=== PATIENT | female | born 1980 | race Caucasian/White ===

== ENCOUNTER 2016-12-03 17:36 | Emergency (ER) ==
[2016-12-03 17:42] VITALS: TEMP 98.7; BMI 18.6
[2016-12-03 17:52] VITALS: BP 138/85
--- NOTE | 2016-12-03 18:10 | ED.PDOC ---
General ED Provider: Dr. COURTNEY GAONA JR Chief Complaint: Dizziness Stated Complaint: dizziness, with lightness and passing out, with confusion, was at work passed out for 45 minutes[End]dizziness with syncopal episode[End] has been passing out with dizziness for the last 4 days, has not eaten today, symptoms of syncope last for 45 minutes[End]4 DAYS 98.7 96 16 99% 158/89 PATIENT ACTUALLY DESCRIBES FALLING DOWN STAIRS STRIKING HEAD ON MULTIPLE STEPS THEN TWO DAYS LATER FALLING ON SLICK FLOOR IN KITCHEN STRIKING BACKOF HEAD- NECK NONTENDER, BACK OF SCALP SLIGHTLY TENDER, COMPLAINS OF SEVERE STRESS IS BITING NAILS AND CHEWING CUTICLES STATES WAS TAKING ANTIBIOTICS BUT STOPEED DUE TOLIGHTHEADEDNESS(TOOK OF 14: 9 LEFT) Time Seen by Physician: 18:09 Mode of Arrival: Walk-In Information Source: Patient Exam Limitations: No limitations Primary Care Provider: PEPE MA Nursing and Triage Documentation Reviewed and Agree: No Review of Systems - Review Of Systems Constitutional: Reports: Weakness Eyes: Reports: No symptoms Ears, Nose, Mouth, Throat: Reports: No symptoms Respiratory: Reports: No symptoms Cardiac: Reports: No symptoms GI: Reports: No symptoms : Reports: No symptoms Musculoskeletal: Reports: Back pain Skin: Reports: Bruising (NOT SEEN) Neurological: Reports: Anxiety Endocrine: Reports: No symptoms Hematologic/Lymphatic: Reports: No symptoms All Other Systems: Other Past Medical History - Past Medical History Endocrine: Reports: None Cardiovascular: Reports: None Respiratory: Reports: None Hematological: Reports: None Gastrointestinal: Reports: None, Pancreatitis Genitourinary: Reports: None Neuro/Psych: Reports: None Musculoskeletal: Reports: None, Back Pain (CHRONIC" DEFECT ON NORCO") Cancer: Reports: None Last Menstrual Period: na - Surgical History General Surgical History: Reports: Tonsillectomy, Other (COLONOSCOPY, BREAST AUGMENTATION, DIAGNOSTIC LAPAROTOMY) - Family History Family History: Reports: Unknown - Social History Smoking Status: Current some day smoker Hx Substance Use: No Alcohol Screening: None - Immunizations Tetanus Shot up to Date: Yes Physical Exam - Physical Exam Appearance: Well-appearing, Thin Ill-appearing: Mild Pain Distress: Mild Eyes: ALICE, EOMI, Conjunctiva clear ENT: Ears normal, Nose normal, Oropharynx normal Neck: Supple Respiratory: Airway patent, Breath sounds equal, Respirations nonlabored, Rhonchi Cardiovascular: RRR, Pulses normal, No rub, No murmur GI/: Soft, No masses, Bowel sounds normal, No Organomegaly, Tender ( EPIGASTRIC AND LOW ABDOMEN NOFOCAL) Musculoskeletal: Normal strength, ROM intact, No edema, No calf tenderness Skin: Warm, Dry, Normal color Neurological: Sensation intact, Motor intact, Reflexes intact, Cranial nerves intact, Alert, Oriented Psychiatric: Anxious Interpretation - Radiology Interpretation Radiology Interpretation By: Radiologist Radiology Results: Negative Exam Interpreted: CT Scan (HEAD) - EKG Interpretation Time of EKG #1: 19:09 Rate: Normal Rhythm: Sinus Ectopy: None [place]: NL ST Segment: Normal Critical Care Note - Critical Care Note Total Time (mins): 0 Course - Course Hematology/Chemistry: 12/03/16 18:36 12/03/16 18:36 Orders, Labs, Meds: Lab Review 12/03/16 12/03/16 18:36 18:40 WBC 8.78 RBC 3.90 L Hgb 11.9 L Hct 35.6 L MCV 91.3 MCH 30.5 MCHC 33.4 RDW Coeff of Aditi 13.9 Plt Count 239 Immature Gran % (Auto) 0.3 Neut % (Auto) 61.7 Lymph % (Auto) 32.9 [place] % (Auto) 4.2 Eos % (Auto) 0.7 Baso % (Auto) 0.2 Immature Gran # (Auto) 0.0 Neut # 5.4 Lymph # 2.9 [place] # 0.4 Eos # 0.1 Baso # 0.0 Sodium 138 Potassium 3.5 Chloride 103 Carbon Dioxide 25 Anion Gap 13.5 BUN 5 L Creatinine 0.75 Estimated GFR (MDRD) 88.00 BUN/Creatinine Ratio 6.66 Glucose 109 Calcium 8.9 Total Bilirubin 0.49 AST 16 ALT 15 Alkaline Phosphatase 73 Total Protein 6.8 Albumin 3.6 Globulin 3.2 Albumin/Globulin Ratio 1.13 Urine Color Yellow Urine Clarity Clear Urine pH 6.5 Ur Specific [place] 1.015 Urine Protein Negative Urine Glucose (UA) Negative Urine Ketones Negative Urine Blood Negative Urine Nitrite Negative Urine Bilirubin Negative Urine Urobilinogen 0.2 Ur Leukocyte Esterase Negative Orders Category Date Time Status EKG-(ED ONLY) Stat CARDIO 12/03/16 18:01 Ordered CBC W/ AUTO DIFF Stat LAB 12/03/16 18:36 Completed COMPREHENSIVE METABOLIC PANEL Stat LAB 12/03/16 18:36 Completed UA [URINALYSIS C & S IF INDICATED] Stat LAB 12/03/16 18:[address] HEAD W/O CONTRAST Stat RADS 12/03/16 18:01 Completed Vital Signs: Temp Pulse Resp BP Pulse Ox 12/03/16 17:52 106 H 138/85 12/03/16 17:51 96 H 158/89 H 12/03/16 17:37 98.7 F 96 H 16 158/89 H 99 Departure - Departure Time of Disposition: 19:32 Disposition: HOME SELF-CARE Discharge Problem: Dizziness Head injury due to trauma Qualifiers: Encounter type: initial encounter Qualifier Code: (S09.90XA) Unspecified injury of head, initial encounter Instructions: Concussion (ED), Head Injury (ED), Dizziness (ED) Condition: Good Pt referred to PMD for follow-up: Yes Additional Instructions: CAUTION WHEN WALKING OR TAKING STEPS NO EVIDENCE SERIOUS INJURY RETURN IF HEADACHE WORSENING TYLENOL FOR PAIN OR HEADACHE AVOID NSAIDS FOR TWO WEEKS AFTER HEAD INJURY RECHECK PMD 2-3 DAYS Allergies/Adverse Reactions: Allergies No Known Allergies Allergy (Verified 12/03/16 17:52) Home Medications: Ambulatory Orders Clonazepam [Klonopin] 1 mg PO BEDTIME 09/10/14 Quetiapine Fumarate [Seroquel] 100 mg PO BEDTIME 09/10/14 Tizanidine HCl [Zanaflex] 4 mg PO BID 09/10/14 l-Norgest/E.estradion-E.estrad [[place] 0.15-0.03-0.01 mg Tab] 1 each PO DAILY
--- NOTE | 2016-12-03 18:36 | CT ---
EXAM: CT brain without contrast HISTORY: Recurrent syncope. TECHNIQUE: Multi-slice sequential. Coronal and sagital reformations were performed. COMPARISON: None FINDINGS: There is no acute intracranial hemorrhage, extraxial fluid collection, mass affect, or midlineshift. The ventricles are normal in size.The winn-white matter interface is maintained.The basal cisterns a re patent.The visualized paranasal sinuses are clear. Mastoid air cells are well aerated.The calvari um is unremarkable. IMPRESSION: No acute intracranial findings.
[2016-12-03 18:42] LABS: BASOPHILS % (AUTO) 0.2 % (0.0-3.0); EOSINOPHILS # (AUTO) 0.1 K/ul (0.0-0.7); EOSINOPHILS % (AUTO) 0.7 % (0.0-7.0); HEMATOCRIT 35.6 % (37.0-47.0); HEMOGLOBIN 11.9 g/dl (12.0-16.0); IMMATURE GRANULOCYTE % (AUTO) 0.3 % (0.0-5.0); LYMPHOCYTES # (AUTO) 2.9 K/uL (0.60-3.4); LYMPHOCYTES % (AUTO) 32.9 (10.0-50.0); MEAN CORPUSCULAR HEMOGLOBIN 30.5 pg (27.0-31.0); MEAN CORPUSCULAR HGB CONC 33.4 (31.8-35.4); MEAN CORPUSCULAR VOLUME 91.3 fl (81.0-99.0); MONOCYTES # (AUTO) 0.4 K/uL (0.4-2.0); MONOCYTES % (AUTO) 4.2 (0-10); NEUTROPHILS # (AUTO) 5.4 K/ul (2.0-6.9); NEUTROPHILS % (AUTO) 61.7; PLATELET COUNT 239 10^3/uL (140-440); WHITE BLOOD COUNT 8.78 K/ul (4.6-10.2)
[2016-12-03 18:48] LABS: BILIRUBIN,URINE Negative (NEGATIVE); KETONES,URINE Negative (NEGATIVE); LEUKOCYTE ESTERASE ,URINE Negative (NEGATIVE); NITRITE,URINE Negative (NEGATIVE); PH,URINE 6.5 (5-9); PROTEIN,URINE Negative (NEGATIVE); URINE, BLOOD Negative (NEGATIVE)
[2016-12-03 18:49] LABS: ADD URINE MICROSCOPIC NO
[2016-12-03 19:00] LABS: ALBUMIN 3.6 g/dL (3.4-5.0); ALBUMIN/GLOBULIN RATIO 1.13; ANION GAP 13.5; BILIRUBIN,TOTAL 0.49 mg/dL (0.00-1.20); BUN/CREATININE RATIO 6.66; CALCIUM 8.9 mg/dL (8.2-10.2); CREATININE 0.75 mg/dL (0.60-1.30); POTASSIUM 3.5 mmol/L (3.5-5.10); TOTAL PROTEIN 6.8 g/dL (6.4-8.2)
== END 2016-12-03 19:54 | disposition home or self-care (01) ==
LOC: ED 17:36
DX: S09.90XA Unspecified injury of head, initial encounter (principal); R42 Dizziness and giddiness; R55 Syncope and collapse; R53.1 Weakness; R29.6 Repeated falls; W19.XXXA Unspecified fall, initial encounter; F17.210 Nicotine dependence, cigarettes, uncomplicated; Z79.899 Other long term (current) drug therapy
CPT/HCPCS: 36415; 80053; 81001; 85025; 93005; 93010; 99283

== ENCOUNTER 2017-05-22 22:29 | Inpatient (IN) ==
[2017-05-22] MEDS ORDERED: SODIUM CHLORIDE 1,000 ML IV STA (22:44)
[2017-05-22 22:57] LABS: BASOPHILS % (AUTO) 0.2 % (0.0-3.0); EOSINOPHILS # (AUTO) 0.1 K/ul (0.0-0.7); EOSINOPHILS % (AUTO) 1.5 % (0.0-7.0); HEMATOCRIT 32.7 % (37.0-47.0); HEMOGLOBIN 10.9 g/dl (12.0-16.0); IMMATURE GRANULOCYTE % (AUTO) 0.4 % (0.0-5.0); LYMPHOCYTES # (AUTO) 3.4 K/uL (0.60-3.4); LYMPHOCYTES % (AUTO) 40.6 (10.0-50.0); MEAN CORPUSCULAR HGB CONC 33.3 (31.8-35.4); MEAN CORPUSCULAR VOLUME 90.1 fl (81.0-99.0); MONOCYTES # (AUTO) 0.5 K/uL (0.4-2.0); MONOCYTES % (AUTO) 6.5 (0-10); NEUTROPHILS # (AUTO) 4.2 K/ul (2.0-6.9); NEUTROPHILS % (AUTO) 50.8; PLATELET COUNT 227 10^3/uL (140-440); RED BLOOD COUNT 3.63 10^6/ul (4.20-5.40); WHITE BLOOD COUNT 8.25 K/ul (4.6-10.2)
[2017-05-22 23:36] LABS: ACETAMINOPHEN < 3 ug/ml (10-30); ALANINE AMINOTRANSFERASE 31 U/L (12-78); ALBUMIN 3.6 g/dL (3.4-5.0); ALBUMIN/GLOBULIN RATIO 1.44; ALKALINE PHOSPHATASE 66 U/L (42-98); ANION GAP 13.5; ASPARTATE AMINO TRANSFERASE 34 U/L (15-37); BILIRUBIN,TOTAL 0.32 mg/dL (0.00-1.20); BLOOD UREA NITROGEN 12 mg/dL (7-18); CALCIUM 8.3 mg/dL (8.2-10.2); CARBON DIOXIDE 23 mmol/L (21-32); CHLORIDE 107 mmol/L (98-107); GLUCOSE 95 mg/dL (70-110); POTASSIUM 3.5 mmol/L (3.5-5.10); SALICYLATE < 5.0 mg/dL (2.8-20.0); SODIUM 140 mmol/L (136-145); TOTAL PROTEIN 6.1 g/dL (6.4-8.2)
--- NOTE | 2017-05-22 23:36 | ED.PDOC ---
General ED Provider: Dr. KASHMIR BROCK Chief Complaint: Overdose Stated Complaint: Patient is a 36 year old female who is brought by her x brother in law statin melinda has taken about 20 clonipin because she going through a divorce and that her wants to take he children away from her. She ingested medications at 930 pm tonight and started getting confused. Also states that her best friend is dying of cancer. Also her fiance' commite suicide in 2008 and states that her family hates her. Time Seen by Physician: 22:35 Mode of Arrival: Walk-In Information Source: Patient, Other Exam Limitations: Intoxication Primary Care Provider: PEPE MA Nursing and Triage Documentation Reviewed and Agree: Yes Psychological Complaint Exam - Overdose/Toxic Exposure Complaint/Exam Patient Complains Of: Overdose Ingestion Occurred: 930 pm tonight Witnessed: No Ingestion: Drug (clonipin) Aggravating: Reports: None Treatment Prior To Arrival: None Associated Signs And Symptoms: Denies: AMS, Agitation, Seizure, Diaphoresis, Chest pain, Palpitations, Cyanosis, Short of air, Cough, Vomiting, Drooling, Intentional ingestion, Unintentional overdose, Pediatric ingestion Completed Suicide Risk Factors: None Gag Reflex Present: Yes Inability To Swallow Present: No Drooling Present: No Glascow Coma Scale (see protocol): 15 Miosis Present: No Mydriasis Present: No Speech: Present: Normal findings Aphasia: Present: None Gait: Present: Normal Patient Uncooperative For Exam: No Mood: Present: Depressed, Anxious Appearance: Present: Clean Thought Process: Present: Illogical Memory: Intact Judgement: Impaired Danger To Others: No Differential Diagnoses: Anxiety, Intentional Drug OD, Suicide Attempt Quality Indicator For Non-Traumatic Chest Pain/Syncope: EKG Performed Review of Systems - Review Of Systems Constitutional: Reports: No symptoms Eyes: Reports: No symptoms Ears, Nose, Mouth, Throat: Reports: No symptoms Respiratory: Reports: No symptoms Cardiac: Reports: No symptoms GI: Reports: No symptoms : Reports: No symptoms Musculoskeletal: Reports: No symptoms Skin: Reports: No symptoms Neurological: Reports: Anxiety, Depressed, Emotional problems Endocrine: Reports: No symptoms Hematologic/Lymphatic: Reports: No symptoms All Other Systems: Reviewed and Negative Past Medical History - Past Medical History Endocrine: Reports: None Cardiovascular: Reports: None Respiratory: Reports: None Hematological: Reports: None Gastrointestinal: Reports: Pancreatitis Genitourinary: Reports: None Neuro/Psych: Reports: Anxiety, Depression Musculoskeletal: Reports: Back Pain (CHRONIC" DEFECT ON NORCO") Cancer: Reports: None Last Menstrual Period: PT HAS HAD A HYSTERECTOMY Other Pertinent Past Medical History: TONSILECTOMY, COLONOSCOPY, BREAST AUGMENTATION, DIANOSTIC LAPEROTOMY - Surgical History General Surgical History: Reports: Tonsillectomy, Other (COLONOSCOPY, BREAST AUGMENTATION, DIAGNOSTIC LAPAROTOMY) - Family History Family History: Reports: Unknown - Social History Smoking Status: Current every day smoker, Light tobacco smoker Hx Substance Use: No Alcohol Screening: None - Immunizations Tetanus Shot up to Date: (UNKNOWN) Physical Exam - Physical Exam Appearance: Ill-appearing, Thin Ill-appearing: Moderate Eyes: ALICE, EOMI, Conjunctiva clear ENT: Ears normal, Nose normal, Oropharynx normal Neck: Supple Respiratory: Airway patent, Breath sounds clear, Breath sounds equal, Respirations nonlabored Cardiovascular: RRR, Pulses normal, No rub, No murmur GI/: Soft, Nontender, No masses, Bowel sounds normal, No Organomegaly Musculoskeletal: Normal strength, ROM intact, No edema, No calf tenderness Skin: Warm, Dry Neurological: Alert, Oriented Psychiatric: Anxious, Depressed Interpretation - EKG Interpretation Rate: Normal Rhythm: Sinus Ectopy: None [place]: NL ST Segment: Normal Interpretation: normal EKG Physician Notification - Case Discussed Physician Notified: Dr. Zavala Time of Notification: 02:11 (Ok to Admit to SCU) Critical Care Note - Critical Care Note Total Time (mins): 40 Course - Course Hematology/Chemistry: 05/23/17 04:51 05/23/17 04:51 Orders, Labs, Meds: Lab Review 05/22/17 05/22/17 00:25 22:53 WBC 8.25 RBC 3.63 L Hgb 10.9 L Hct 32.7 L MCV 90.1 MCH 30.0 MCHC 33.3 RDW Coeff of Aditi 14.6 Plt Count 227 Immature Gran % (Auto) 0.4 Neut % (Auto) 50.8 Lymph % (Auto) 40.6 [place] % (Auto) 6.5 Eos % (Auto) 1.5 Baso % (Auto) 0.2 Immature Gran # (Auto) 0.0 Neut # 4.2 Lymph # 3.4 [place] # 0.5 Eos # 0.1 Baso # 0.0 Sodium 140 Potassium 3.5 Chloride 107 Carbon Dioxide 23 Anion Gap 13.5 BUN 12 Creatinine 0.60 Estimated GFR (MDRD) 114.00 BUN/Creatinine Ratio 20.00 Glucose 95 Calcium 8.3 Total Bilirubin 0.32 AST 34 ALT 31 Alkaline Phosphatase 66 Total Protein 6.1 L Albumin 3.6 Globulin 2.5 Albumin/Globulin Ratio 1.44 TSH 1.402 Salicylate Level mg/dL < 5.0 Urine Opiates Screen Positive Ur Oxycodone Screen Negative Urine Methadone Screen Negative Ur Propoxyphene Screen Negative Acetaminophen < 3 L Ur Barbiturates Screen Negative U Tricyclic Antidepress Negative Ur Phencyclidine Scrn Negative Ur Amphetamine Screen Positive U Methamphetamines Scrn Positive U Benzodiazepines Scrn Negative Urine Cocaine Screen Negative U Cannabinoids Screen Negative Plasma/Serum Alcohol < 10.0 Orders Category Date Time Status PLACE PATIENT OBSERVATION .TO SCU (MONITORED BED) ADMISSION 05/23/17 00:19 Active EKG-(ED ONLY) Stat CARDIO 05/22/17 22:44 Completed OXYGEN Routine CARDIO 05/23/17 00:19 Active ACTIVITY .BR with BRP CARE 05/23/17 00:21 Active INTAKE & OUTPUT Q8HR CARE 05/23/17 00:19 Active TELEMETRY MONITORING TELE CARE 05/23/17 00:21 Active VITAL SIGNS Q4HR CARE 05/23/17 00:21 Active VTE PREVENTION .SCD On AM/Off PM CARE 05/23/17 00:19 Active REGULAR DIET DIETARY 05/23/17 Breakfast Ordered 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 ONCE EMERGENCY 05/22/17 22:44 Active ED IV/MEDIPORT/POWERPORT .ONCE EMERGENCY 05/22/17 22:44 Active ACETAMINOPHEN Stat LAB 05/22/17 22:53 Completed BLOOD ALCOHOL Stat LAB 05/22/17 22:53 Completed CBC W/ AUTO DIFF DAILY@0600 LAB 05/23/17 04:51 Completed CBC W/ AUTO DIFF DAILY@0600 LAB 05/24/17 06:00 Ordered CBC W/ AUTO DIFF DAILY@0600 LAB 05/25/17 06:00 Ordered CBC W/ AUTO DIFF DAILY@0600 LAB 05/26/17 06:00 Ordered CBC W/ AUTO DIFF DAILY@0600 LAB 05/27/17 06:00 Ordered CBC W/ AUTO DIFF DAILY@0600 LAB 05/28/17 06:00 Ordered CBC W/ AUTO DIFF DAILY@0600 LAB 05/29/17 06:00 Ordered CBC W/ AUTO DIFF DAILY@0600 LAB 05/30/17 06:00 Ordered CBC W/ AUTO DIFF DAILY@0600 LAB 05/31/17 06:00 Ordered CBC W/ AUTO DIFF DAILY@0600 LAB 06/01/17 06:00 Ordered CBC W/ AUTO DIFF DAILY@0600 LAB 06/02/17 06:00 Ordered CBC W/ AUTO DIFF DAILY@0600 LAB 06/03/17 06:00 Ordered CBC W/ AUTO DIFF DAILY@0600 LAB 06/04/17 06:00 Ordered CBC W/ AUTO DIFF DAILY@0600 LAB 06/05/17 06:00 Ordered CBC W/ AUTO DIFF DAILY@0600 LAB 06/06/17 06:00 Ordered CBC W/ AUTO DIFF DAILY@0600 LAB 06/07/17 06:00 Ordered CBC W/ AUTO DIFF DAILY@0600 LAB 06/08/17 06:00 Ordered CBC W/ AUTO DIFF DAILY@0600 LAB 06/09/17 06:00 Ordered CBC W/ AUTO DIFF DAILY@0600 LAB 06/10/17 06:00 Ordered CBC W/ AUTO DIFF DAILY@0600 LAB 06/11/17 06:00 Ordered CBC W/ AUTO DIFF [facility] LAB 05/22/17 22:53 Completed COMPREHENSIVE METABOLIC PANEL DAILY@0600 LAB 05/23/17 04:51 Completed COMPREHENSIVE METABOLIC PANEL DAILY@0600 LAB 05/24/17 06:00 Ordered COMPREHENSIVE METABOLIC PANEL DAILY@0600 LAB 05/25/17 06:00 Ordered COMPREHENSIVE METABOLIC PANEL DAILY@0600 LAB 05/26/17 06:00 Ordered COMPREHENSIVE METABOLIC PANEL DAILY@0600 LAB 05/27/17 06:00 Ordered COMPREHENSIVE METABOLIC PANEL DAILY@0600 LAB 05/28/17 06:00 Ordered COMPREHENSIVE METABOLIC PANEL DAILY@0600 LAB 05/29/17 06:00 Ordered COMPREHENSIVE METABOLIC PANEL DAILY@0600 LAB 05/30/17 06:00 Ordered COMPREHENSIVE METABOLIC PANEL DAILY@0600 LAB 05/31/17 06:00 Ordered COMPREHENSIVE METABOLIC PANEL DAILY@0600 LAB 06/01/17 06:00 Ordered COMPREHENSIVE METABOLIC PANEL DAILY@0600 LAB 06/02/17 06:00 Ordered COMPREHENSIVE METABOLIC PANEL DAILY@0600 LAB 06/03/17 06:00 Ordered COMPREHENSIVE METABOLIC PANEL DAILY@0600 LAB 06/04/17 06:00 Ordered COMPREHENSIVE METABOLIC PANEL DAILY@0600 LAB 06/05/17 06:00 Ordered COMPREHENSIVE METABOLIC PANEL DAILY@0600 LAB 06/06/17 06:00 Ordered COMPREHENSIVE METABOLIC PANEL DAILY@0600 LAB 06/07/17 06:00 Ordered COMPREHENSIVE METABOLIC PANEL DAILY@0600 LAB 06/08/17 06:00 Ordered COMPREHENSIVE METABOLIC PANEL DAILY@0600 LAB 06/09/17 06:00 Ordered COMPREHENSIVE METABOLIC PANEL DAILY@0600 LAB 06/10/17 06:00 Ordered COMPREHENSIVE METABOLIC PANEL DAILY@0600 LAB 06/11/17 06:00 Ordered COMPREHENSIVE METABOLIC PANEL Stat LAB 05/22/17 22:53 Completed DRUG SCREEN, URINE, RAPID Stat LAB 05/22/17 00:25 Completed SALICYLATE Stat LAB 05/22/17 22:53 Completed THYROID STIMULATING HORMONE Stat LAB 05/22/17 22:53 Completed URINALYSIS C & S IF INDICATED Stat LAB 05/23/17 00:25 Completed 0.9 % Sodium Chloride [Saline Flush] MEDS 05/22/17 22:44 Active 1 syr IVF PRN PRN Ondansetron HCl/Pf [Zofran 4 mg/2 ml] MEDS 05/23/17 00:19 Active 4 mg IVP Q6H PRN Potassium Chloride in 0.9%NaCl [Sodium Chloride 0.9%- MEDS 05/23/17 00:30 Active KCl 20 Meq] 1,000 ml IV 125 mls/hr Sodium Chloride 0.9% [Sodium Chloride] 1,000 ml MEDS 05/22/17 22:44 Discontinued IV BOLUS RESUSCITATION STATUS Routine OTHERS 05/23/17 00:19 Ordered Medications Generic Name Dose Route Start Last Admin Trade Name Freq PRN Reason Stop Dose Admin Potassium Chloride/Sodium Chloride 1,000 mls @ 125 mls/hr 05/23/17 00:30 02/04 02:46 Sodium Chloride 0.9%-Kcl 20 Meq IV 125 mls/hr .Q8H GAVIN Administration Ondansetron HCl 4 mg 05/23/17 00:19 Zofran 4 Mg/2 Ml IVP Q6H PRN Nausea / Vomiting Sodium Chloride 1 syr 05/22/17 22:44 Saline Flush IVF PRN PRN To flush IV Discontinued Medications Generic Name Dose Route Start Last Admin Trade Name Freq PRN Reason Stop Dose Admin Sodium Chloride 1,000 mls @ 1,000 mls/hr 05/22/17 22:44 05/22/17 23:04 Sodium Chloride IV 05/22/17 23:43 1,000 mls/hr BOLUS STA Administration Vital Signs: Temp Pulse Resp BP Pulse Ox 05/22/17 22:30 97.6 F 75 16 124/75 100 Departure - Departure Time of Disposition: 02:11 Disposition: ADMITTED INPATIENT Discharge Problem: Drug overdose, Depression, Anxiety Condition: Serious Pt referred to PMD for follow-up: No Allergies/Adverse Reactions: Allergies No Known Allergies Allergy (Verified 05/22/17 22:49) Home Medications: Ambulatory Orders Clonazepam [Klonopin] 1 mg PO BID PRN 09/10/14 Tizanidine HCl [Zanaflex] 4 mg PO 3-4XD PRN 09/10/14 Quetiapine Fumarate [Seroquel] 50 mg PO BEDTIME 05/22/17 Dextroamphetamine/Amphetamine [Adderall 15 mg Tablet] 15 mg PO BID LUNCH & SUPPER 05/23/17 Dextroamphetamine/Amphetamine [Adderall 30 mg Tablet] 30 mg PO DAILY 05/23/17 Hydrocodone Bit/Acetaminophen [[place] 7.5-325] 1 tab PO TID 05/23/17 Discharge Problem: Depression Qualifiers: Depression Type: major depressive disorder Major depression recurrence: recurrent Active/Remission status: currently active Major depression episode severity: severe Psychotic features: without psychotic features Qualifier Code: (F33.2) Major depressive disorder, recurrent severe without psychotic features
[2017-05-23] MEDS ORDERED: ZOFRAN 4 MG/2 ML IVP PRN (00:19)
[2017-05-23] MEDS ORDERED: SODIUM CHLORIDE 0.9%-KCL 20 MEQ 1,000 ML IV SCH (00:30)
[2017-05-23 00:35] LABS: BILIRUBIN,URINE Negative (NEGATIVE); KETONES,URINE Negative (NEGATIVE); LEUKOCYTE ESTERASE ,URINE Negative (NEGATIVE); NITRITE,URINE Negative (NEGATIVE); PROTEIN,URINE Negative (NEGATIVE); URINE, BLOOD Negative (NEGATIVE)
[2017-05-23 00:36] LABS: ADD URINE MICROSCOPIC NO
[2017-05-23 00:43] LABS: COCAIN SCREEN,URINE NEGATIVE (NEGATIVE)
[2017-05-23 01:54] VITALS: BMI 17.7
[2017-05-23 05:01] LABS: BASOPHILS % (AUTO) 0.4 % (0.0-3.0); EOSINOPHILS # (AUTO) 0.2 K/ul (0.0-0.7); EOSINOPHILS % (AUTO) 1.8 % (0.0-7.0); HEMATOCRIT 33.1 % (37.0-47.0); HEMOGLOBIN 10.9 g/dl (12.0-16.0); IMMATURE GRANULOCYTE % (AUTO) 0.5 % (0.0-5.0); LYMPHOCYTES # (AUTO) 3.4 K/uL (0.60-3.4); LYMPHOCYTES % (AUTO) 40.8 (10.0-50.0); MEAN CORPUSCULAR HEMOGLOBIN 30.4 pg (27.0-31.0); MEAN CORPUSCULAR HGB CONC 32.9 (31.8-35.4); MEAN CORPUSCULAR VOLUME 92.2 fl (81.0-99.0); MONOCYTES # (AUTO) 0.6 K/uL (0.4-2.0); NEUTROPHILS # (AUTO) 4.1 K/ul (2.0-6.9); NEUTROPHILS % (AUTO) 49.5; PLATELET COUNT 222 10^3/uL (140-440); RED BLOOD COUNT 3.59 10^6/ul (4.20-5.40); WHITE BLOOD COUNT 8.31 K/ul (4.6-10.2)
[2017-05-23 05:17] LABS: ALBUMIN 3.4 g/dL (3.4-5.0); ALBUMIN/GLOBULIN RATIO 1.55; ANION GAP 12.5; BILIRUBIN,TOTAL 0.37 mg/dL (0.00-1.20); BUN/CREATININE RATIO 15.51; CALCIUM 8.3 mg/dL (8.2-10.2); CREATININE 0.58 mg/dL (0.60-1.30); POTASSIUM 3.5 mmol/L (3.5-5.10); TOTAL PROTEIN 5.6 g/dL (6.4-8.2)
[2017-05-23 06:10] VITALS: BP 104/64; TEMP 97.8
== END 2017-05-23 10:15 | disposition left against medical advice (07) | DRG 918 ==
LOC: ED 22:29 → SCU 05-23 00:21
PROVIDERS: ADMIT Family Medicine; ATTEND Family Medicine
DX: T42.4X2A Poisoning by benzodiazepines, intentional self-harm, initial encounter (principal); F33.2 Major depressive disorder, recurrent severe without psychotic features; R45.851 Suicidal ideations; F41.8 Other specified anxiety disorders; F17.210 Nicotine dependence, cigarettes, uncomplicated; Z79.899 Other long term (current) drug therapy
CPT/HCPCS: 36415; 80053; 80306; 80307; 81001; 84443; 85025; 87081; 93005; 93010; 96360; 99284

== ENCOUNTER 2017-05-23 12:55 | Inpatient (IN) ==
[2017-05-23 01:54] VITALS: BMI 17.7
[2017-05-23] MEDS ORDERED: NON-FORMULARY MEDICATION (Tizanidine Hcl [Zanaflex] 4 MG) PO PRN ×22 (15:46)
[2017-05-23] MEDS ORDERED: NON-FORMULARY MEDICATION (Clonazepam [Klonopin] 1 MG) PO PRN ×22 (15:46)
[2017-05-23] MEDS ORDERED: KLONOPIN PO PRN (16:01)
[2017-05-23] MEDS ORDERED: ZANAFLEX PO PRN (16:02)
[2017-05-23] MEDS: NORCO 7.5-325 PO SCH ×2 (16:13→21:22)
[2017-05-23] MEDS ORDERED: NON-FORMULARY MEDICATION (Quetiapine Fumarate [Seroquel] 50 MG) PO SCH ×21 (21:00)
[2017-05-23] MEDS ORDERED: SEROQUEL PO SCH (21:00)
[2017-05-23 21:56] VITALS: BP 106/57; TEMP 97.4
[2017-05-23 22:09] LABS: SERUM PREGNANCY INTERNAL QC INTERNAL QC VALID
--- NOTE | 2017-05-31 14:07 | SSS ---
PRINCIPAL DIAGNOSIS: 1. Overdose DISCUSSION: This is a 36 year old lady who was brought in to the emergency department after taking unknown amount of Klonopin. She had voiced suicidal ideation and was brought in for evaluation. She was seen in the emergency department and subsequently admitted to the SCU. MEDICATIONS: Klonopin Zanaflex Seroquel Adderall [place] ALLERGIES: None PAST MEDICAL HISTORY: History of depression History of anxiety Attention deficit Chronic back pain Tonsillectomy Breast Augmentation Hysterectomy SOCIAL HISTORY: A pack a day smoker. Denies any alcohol or illicit drug use. REVIEW OF SYSTEMS: No headaches, visual changes, tinnitus, hemoptysis, blood in the stool, urinary symptoms or seizures, shortness of breath, chest pain. PHYSICAL EXAMINATION: VITAL SIGNS: Temperature 97.6 , pulse 75, respirations 16 and blood pressure 124/75. HEENT: Pupils are round. NECK: Supple. CHEST: Clear. CARDIOVASCULAR: Regular rate and rhythm. ABDOMEN: Soft, nontender. EXTREMITIES: Distal extremities without cyanosis or edema. CLINICAL COURSE: The patient was cleared by poison control to be medically stable. Shortly after admission her family brought in letters that she had written essentially good- bye letters even to her son. They also brought in a copy of a will that she had altered herself indicating they wanted to kill herself. With these items plus the overdose and the current stress we felt put her at increase risk for self harm. At this point with the assistance of mental health she was made an involuntary admission for a 72 hour psychiatric evaluation. She was accepted to [place]. I spoke with the executive physician and the patient was subsequently transferred to [place] for further psychiatric evaluation and treatment. YARIEL
== END 2017-05-24 00:26 | DRG 918 ==
LOC: SCU 12:55 → UNDOADMIN 13:58
PROVIDERS: ADMIT Family Medicine; ATTEND Family Medicine
DX: T42.4X2A Poisoning by benzodiazepines, intentional self-harm, initial encounter (principal); R45.851 Suicidal ideations; F17.210 Nicotine dependence, cigarettes, uncomplicated; Z86.59 Personal history of other mental and behavioral disorders; Z79.899 Other long term (current) drug therapy
CPT/HCPCS: 36415; 84703

== ENCOUNTER 2017-08-12 11:23 | Outpatient (CLI) ==
[2017-08-12 12:23] LABS: COCAIN SCREEN,URINE NEGATIVE (NEGATIVE)
== END 2017-08-12 11:24 | disposition home or self-care (01) ==
LOC: LAB 11:23
PROVIDERS: ATTEND Family Medicine
DX: Z02.83 Encounter for blood-alcohol and blood-drug test (principal)
CPT/HCPCS: 80306

== ENCOUNTER 2018-01-17 12:04 | Outpatient (CLI) ==
--- NOTE | 2018-01-17 22:50 | MRI ---
EXAM: Lumbar spine MRI without contrast. HISTORY: Lumbar spine pain. COMPARISON: Lumbar spine radiographs 03/14/2014 and lumbar spine MRI 01/04/2014. TECHNIQUE: Multiplanar, multisequence MR images were acquired of the lumbar spine without contrast. FINDINGS: Conus medullaris ends at L1 and has normal signal intensity. Transitional spinal anatomy is present. The last rib-bearing vertebra. The skull T12. There are five classic non-rib bearing v ertebra. L5 is a transitional vertebra with a pseudoarticulation between the left L5 transverse proc ess and the left sacral ala. There is accentuation of the usual lumbar lordosis and 3.8 mm degenerat edin retrolisthesis of L4 on L5. The ventral spondylosis is present in the lumbar spine and there is disc desiccation and mild disc space narrowing at L4-5. The L5-S1 disc is developmentally mildly sma ll. The partially visualized liver, spleen and kidneys are unremarkable. There are no paravertebral andreas s. T12-L1: The intervertebral disc is normal. L1-2: The intervertebral disc is normal. L2-3: The intervertebral disc is normal. L3-4: There is a minor disc bulge with marginal osteophytes that is asymmetric slightly posteriorly and to the left. This mildly effaces the left lateral recess and inferior left neural foramen. Ther e is no central canal stenosis or foraminal stenosis. L4-5: There is retrolisthesis of L4 on L5 and there is a mild disc bulge and superimposed small broa d-based central disc extrusion with inferior migration. This minimally effaces the ventral thecal sa c and right lateral recess without central canal stenosis or foraminal stenosis. L5-S1: The intervertebral disc is normal. Mild left hypertrophic facet arthropathy is present. The re are probable bilateral L5 pars interarticularis defects with low T1-T2 signal. There is no central canal stenosis or foraminal stenosis. IMPRESSION: 1. Stable 3.8 mm degenerative retrolisthesis of L4 on L5 and small broad-based central disc extrusio n. 2. Chronic bilateral L5 pars interarticularis defects. 3. Transitional spinal anatomy. L5 is a transitional vertebra with a pseudoarticulation between the left L5 transverse process and sacral ala.
== END 2018-01-17 12:05 | disposition home or self-care (01) ==
LOC: RAD 12:04
PROVIDERS: ATTEND Pain Medicine Interventional Pain Medicine
DX: M47.816 Spondylosis without myelopathy or radiculopathy, lumbar region (principal); M51.36 Other intervertebral disc degeneration, lumbar region; M43.17 Spondylolisthesis, lumbosacral region

== ENCOUNTER 2018-01-27 15:47 | Outpatient (CLI) | END 2018-01-27 15:48 | disposition home or self-care (01) | LOC: LAB 15:47 | PROVIDERS: ATTEND Family Medicine | DX: F19.10 Other psychoactive substance abuse, uncomplicated (principal) | CPT/HCPCS: 36415; 80306; 82542 ==

== ENCOUNTER 2018-02-22 17:52 | Emergency (ER) ==
[2018-02-22 17:52] VITALS: BMI 17.7
[2018-02-22 17:55] VITALS: BP 114/74; TEMP 98.3
--- NOTE | 2018-02-22 19:13 | CT ---
Exam: CT abdomen pelvis without intravenous contrast. Comparison: 01/03/2017. Reason for exam: Lower abdominal pain. Rule out appendicitis. FINDINGS: No pleural effusion, or focal consolidation in the partially imaged lung bases. Image interpretation is limited by the lack of intravenous contrast administration. Surgical changes are seen after breast implantation surgery. The gallbladder is compressed which limits evaluation. The liver, spleen, adrenal glands, and pancreas appear grossly unremarkable within limitations of a n oncontrasted study. No hydronephrosis, hydroureter, or nephrolithiasis is seen in either kidney. The entirety of the ureters are not able to be followed throughout the abdomen and pelvis secondary t o a paucity of intra-abdominal fat. The bladder wall appears mildly prominent. Evaluation of the bladder is limited by non distension. No focal small bowel dilatation or transition point. Appendicoliths without periappendiceal fat stranding or inflammation best seen on coronal image numbe r 31. No intra-abdominal free air or pelvic free fluid. No suspicious appearing osteoblastic or osteolytic lesions. Impression: 1. No acute inflammatory findings are seen within the abdomen and pelvis within limitations of a non contrasted study. 2. Appendicoliths without periappendiceal fat stranding or inflammatory change. Imaging findings do not support acute appendicitis. Report faxed at [id number] hours on 02/22/2018.
--- NOTE | 2018-02-22 19:27 | ED.PDOC ---
General ED Provider: Dr. PEPE MA-ER Chief Complaint: Abdominal Pain Stated Complaint: i have cysts on my ovaries and had u/s with dr darling today-- they hurt--i take norco 7.5mg for pain and its not helping Time Seen by Physician: 19:25 Mode of Arrival: Walk-In Information Source: Patient Exam Limitations: No limitations Primary Care Provider: PEPE MA Nursing and Triage Documentation Reviewed and Agree: Yes Reviewed sepsis parameters & appropriate labs ordered?: Yes System Inflammatory Response Syndrome: Not Applicable Sepsis Protocol: For patient's 13 years and over: Temp is 96.8 and below OR 101 and greater Pulse >90 BPM Resp >20/minute Acutely Altered Mental Status Are patient's symptoms suggestive of a new infection, such as: -Pneumonia -Skin, Soft Tissue -Endocarditis -UTI -Bone, Joint Infection -Implantable Device -Acute Abdominal Infection -Wound Infection -Meningitis -Blood Stream Catheter Infection -Unknown GI Complaint Exam - Abdominal Pain Complaint/Exam Onset: Gradual Duration: 24 hrs Symptoms Are: Still present Timing: Constant Initial Severity: Moderate Current Severity: Moderate Location of Pain: Diffuse Radiates To: Reports: LLQ, RLQ Character: Reports: Dull, Aching, Cramping, Tearing Aggravating: Reports: None Alleviating: Reports: None Associated Signs and Symptoms: Denies: Diaphoresis, Fever, Cough, Chest pain, Dizziness, Back pain, Constipation, Blood in stool, Dysuria, Urinary frequency, Decreased urine output, Decreased appetite, Vaginal bleeding, Vaginal discharge , Nausea, Vomiting, Diarrhea, Sore throat, Decreased activity Ovarian Torsion Risk Factors: Reports: Reproductive age, Ovarian cysts Surgical Obstruction Risk Factors: Reports: None Related Surgical History: Reports: JIM Patient Rh Status: Unknown Abdominal Findings: Present: None Differential Diagnoses: Ovarian Cyst, Other Review of Systems - Review Of Systems Constitutional: Reports: No symptoms Eyes: Reports: No symptoms Ears, Nose, Mouth, Throat: Reports: No symptoms Respiratory: Reports: No symptoms Cardiac: Reports: No symptoms GI: Reports: Abdominal pain, Nausea : Reports: No symptoms Musculoskeletal: Reports: No symptoms Skin: Reports: No symptoms Neurological: Reports: No symptoms Endocrine: Reports: No symptoms Hematologic/Lymphatic: Reports: No symptoms All Other Systems: Reviewed and Negative Past Medical History - Past Medical History Previously Healthy: Yes Endocrine: Reports: None Cardiovascular: Reports: None Respiratory: Reports: None Hematological: Reports: None Gastrointestinal: Reports: Pancreatitis Genitourinary: Reports: None Neuro/Psych: Reports: Anxiety, Depression Musculoskeletal: Reports: Back Pain (CHRONIC" DEFECT ON NORCO") Cancer: Reports: None Last Menstrual Period: none Other Pertinent Past Medical History: TONSILECTOMY, COLONOSCOPY, BREAST AUGMENTATION, DIANOSTIC LAPEROTOMY - Surgical History General Surgical History: Reports: Tonsillectomy, Other (COLONOSCOPY, BREAST AUGMENTATION, DIAGNOSTIC LAPAROTOMY) - Family History Family History: Reports: Unknown - Social History Smoking Status: Current every day smoker, Light tobacco smoker Hx Substance Use: No Alcohol Screening: None Physical Exam - Physical Exam Appearance: Well-appearing, No pain distress, Well-nourished Pain Distress: Moderate Eyes: ALICE ENT: Ears normal, Nose normal, Oropharynx normal Neck: Supple Respiratory: Airway patent, Breath sounds clear, Breath sounds equal, Respirations nonlabored Cardiovascular: RRR, Pulses normal, No rub, No murmur GI/: Soft, No masses, Bowel sounds normal, No Organomegaly, Tender Musculoskeletal: Normal strength Skin: Warm Neurological: Sensation intact, Motor intact, Reflexes intact, Cranial nerves intact, Alert, Oriented Psychiatric: Affect appropriate, Mood appropriate Interpretation - Radiology Interpretation Radiology Interpretation By: Radiologist Radiology Results: Negative Exam Interpreted: CT Scan Critical Care Note - Critical Care Note Total Time (mins): 0 Course - Course Hematology/Chemistry: 02/22/18 18:48 02/22/18 18:48 Orders, Labs, Meds: Lab Review 02/22/18 02/22/18 02/22/18 18:45 18:48 18:48 WBC 10.11 RBC 4.11 L Hgb 12.8 Hct 37.0 MCV 90.0 MCH 31.1 H MCHC 34.6 RDW Coeff of Aditi 13.0 Plt Count 188 Immature Gran % (Auto) 0.3 Neut % (Auto) 63.7 Lymph % (Auto) 29.5 [place] % (Auto) 5.4 Eos % (Auto) 0.8 Baso % (Auto) 0.3 Immature Gran # (Auto) 0.0 Neut # (Auto) 6.4 Lymph # (Auto) 3.0 [place] # (Auto) 0.6 Eos # (Auto) 0.1 Baso # (Auto) 0.0 ESR Pending Sodium 138 Potassium 3.6 Chloride 101 Carbon Dioxide 26 Anion Gap 14.6 BUN 9 Creatinine 0.69 Estimated GFR (MDRD) 97.00 BUN/Creatinine Ratio 13.04 Glucose 97 Calcium 9.5 Total Bilirubin 0.5 AST 13 L ALT 11 L Alkaline Phosphatase 83 Total Protein 7.4 Albumin 4.3 Globulin 3.1 Albumin/Globulin Ratio 1.39 Amylase 43 Lipase 9 Urine Color Yellow Urine Clarity Clear Urine pH 7.0 Ur Specific [place] 1.020 Urine Protein Negative Urine Glucose (UA) Negative Urine Ketones Negative Urine Blood Negative Urine Nitrite Negative Urine Bilirubin Negative Urine Urobilinogen 1.0 Ur Leukocyte Esterase Negative Orders Category Date Time Status AMYLASE Stat LAB 02/22/18 18:48 Completed CBC W/ AUTO DIFF Stat LAB 02/22/18 18:48 Results COMPREHENSIVE METABOLIC PANEL Stat LAB 02/22/18 18:48 Completed ESR Stat LAB 02/22/18 18:48 Results LIPASE Stat LAB 02/22/18 18:48 Completed URINALYSIS C & S IF INDICATED Stat LAB 02/22/18 18:[address] ABDOMEN/PELVIS WO CONTRAST Stat RADS 02/22/18 18:36 Completed Vital Signs: Temp Pulse Resp BP Pulse Ox 02/22/18 17:52 98.3 F 95 H 18 114/74 98 Departure - Departure Time of Disposition: 19:27 Disposition: HOME SELF-CARE Discharge Problem: Ovarian cyst Qualifiers: Laterality: bilateral Qualified Code(s): N83.201 - Unspecified ovarian cyst, right side; N83.202 - Unspecified ovarian cyst, left side; N83.202 - Unspecified ovarian cyst, left side Instructions: Ovarian Cyst (ED) Condition: Good Pt referred to PMD for follow-up: Yes IPMP verified?: No (i tried to access the website but unable to access it) Additional Instructions: percocet 7.5mg q 4hrs prn pain #6--phenergan 25mg q 4hrs prn nausea #6--talk to dr hough tomorrow about pain management Allergies/Adverse Reactions: Allergies No Known Allergies Allergy (Verified 02/22/18 17:57) Home Medications: Ambulatory Orders Clonazepam [Klonopin] 1 mg PO BID PRN 09/10/14 Tizanidine HCl [Zanaflex] 4 mg PO 3-4XD PRN 09/10/14 Dextroamphetamine/Amphetamine [Adderall 15 mg Tablet] 15 mg PO BID LUNCH & SUPPER 05/23/17 Dextroamphetamine/Amphetamine [Adderall 30 mg Tablet] 30 mg PO DAILY 05/23/17 Hydrocodone Bit/Acetaminophen [[place] 7.5-325] 1 tab PO TID 05/23/17 Trazodone HCl [Desyrel] 50 mg PO DAILY 02/22/18
== END 2018-02-22 19:35 | disposition home or self-care (01) ==
LOC: ED 17:52
DX: N83.201 Unspecified ovarian cyst, right side (principal); N83.202 Unspecified ovarian cyst, left side; F17.210 Nicotine dependence, cigarettes, uncomplicated
CPT/HCPCS: 36415; 80053; 81001; 82150; 83690; 85025; 85651; 99283

== ENCOUNTER 2018-07-19 12:28 | Emergency (ER) ==
[2018-07-19 12:42] VITALS: BP 113/70; TEMP 99; BMI 17.4
--- NOTE | 2018-07-19 13:49 | CT ---
EXAM: CT of the abdomen pelvis without contrast History: Abdominal pain and fever, nausea. Comparison: CT abdomen pelvis 02/22/2018 Technique: Multiplanar CT images through the abdomen pelvis were obtained without the administration of IV contrast Findings: Lung bases are clear. 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 No renal stones and no hydronephrosis. No angie perinephric stranding. Evaluation of the renal pare nchyma is limited due to the lack of contrast administration. No discrete gallstones identified by C T. The gallbladder is not well distended. No focal liver or splenic lesions. No peripancreatic inf lammation. Adrenal glands are unremarkable. No dilated loops of bowel. Moderate colonic stool. No bladder wall thickening. No free air and no ascites. Uterus is not seen. The visualized appendix is normal. Impression: 1. No acute intra-abdominal or pelvic process identified within limitations of a noncontrast study. 2. If there is concern for pyelonephritis, recommend further evaluation with IV contrast enhanced st udy. 3. Moderate colonic stool
--- NOTE | 2018-07-19 13:57 | ED.PDOC ---
General ED Provider: Dr. JOSHUA DENIS Chief Complaint: Abdominal Pain Stated Complaint: ABDOMINAL PAIN Time Seen by Physician: 12:35 (SEEN WITH SHELLEY PRESENT LATER WITH RINA) Mode of Arrival: Walk-In Information Source: Patient Exam Limitations: No limitations Primary Care Provider: PEPE MA Nursing and Triage Documentation Reviewed and Agree: Yes Does patient meet sepsis criteria?: No System Inflammatory Response Syndrome: Not Applicable Sepsis Protocol: For patient's 13 years and over: Temp is 96.8 and below OR 101 and greater Pulse >90 BPM Resp >20/minute Acutely Altered Mental Status Are patient's symptoms suggestive of a new infection, such as: -Pneumonia -Skin, Soft Tissue -Endocarditis -UTI -Bone, Joint Infection -Implantable Device -Acute Abdominal Infection -Wound Infection -Meningitis -Blood Stream Catheter Infection -Unknown GI Complaint Exam - Abdominal Pain Complaint/Exam Onset: Gradual Duration: CHRONIC WORSENING OF THE ABDOMINAL Symptoms Are: Still present Timing: Intermittent Initial Severity: Moderate Current Severity: Moderate Location of Pain: Diffuse Character: Reports: Dull Aggravating: Reports: None Alleviating: Reports: None Associated Signs and Symptoms: Reports: Urinary frequency. Denies: Diaphoresis , Fever, Cough, Chest pain, Dizziness, Back pain, Constipation, Blood in stool, Dysuria, Decreased urine output, Decreased appetite, Vaginal bleeding, Vaginal discharge, Nausea, Vomiting, Diarrhea, Sore throat, Decreased activity Related History: Reports: Similar episode AAA Risk Factors: Reports: None Cardiac Risk Factors: Reports: None Ectopic Risk Factors: Reports: None Ovarian Torsion Risk Factors: Reports: None Surgical Obstruction Risk Factors: Reports: None Related Surgical History: Reports: None Abdominal Findings: Present: None Differential Diagnoses: Appendicitis, Bowel Obstruction, Constipation, Diverticulitis, Gastroenteritis, Hepatitis, Pancreatitis, Irritable Bowel Syndrome, UTI Review of Systems - Review Of Systems Constitutional: Reports: No symptoms Eyes: Reports: No symptoms Ears, Nose, Mouth, Throat: Reports: No symptoms Respiratory: Reports: No symptoms Cardiac: Reports: No symptoms GI: Reports: Abdominal pain : Reports: No symptoms Musculoskeletal: Reports: No symptoms Skin: Reports: No symptoms Neurological: Reports: No symptoms Endocrine: Reports: No symptoms Hematologic/Lymphatic: Reports: No symptoms All Other Systems: Reviewed and Negative Past Medical History - Past Medical History Previously Healthy: Yes Endocrine: Reports: None Cardiovascular: Reports: None Respiratory: Reports: None Hematological: Reports: None Gastrointestinal: Reports: Pancreatitis Genitourinary: Reports: None Neuro/Psych: Reports: Anxiety, Depression Musculoskeletal: Reports: Back Pain (CHRONIC" DEFECT ON NORCO") Cancer: Reports: None Last Menstrual Period: NA Other Pertinent Past Medical History: TONSILECTOMY, COLONOSCOPY, BREAST AUGMENTATION, DIANOSTIC LAPEROTOMY - Surgical History General Surgical History: Reports: Tonsillectomy, Other (COLONOSCOPY, BREAST AUGMENTATION, DIAGNOSTIC LAPAROTOMY) - Family History Family History: Reports: Unknown - Social History Smoking Status: Current every day smoker, Light tobacco smoker Hx Substance Use: No Alcohol Screening: None Physical Exam - Physical Exam Appearance: Well-appearing, No pain distress, Well-nourished Eyes: ALICE, EOMI, Conjunctiva clear ENT: Ears normal, Nose normal, Oropharynx normal Respiratory: Airway patent, Breath sounds clear, Breath sounds equal, Respirations nonlabored Cardiovascular: RRR, Pulses normal, No rub, No murmur GI/: Soft, Nontender, No masses, Bowel sounds normal, No Organomegaly Musculoskeletal: Normal strength, ROM intact, No edema, No calf tenderness Skin: Warm, Dry, Normal color Neurological: Sensation intact, Motor intact, Reflexes intact, Cranial nerves intact, Alert, Oriented Psychiatric: Affect appropriate, Mood appropriate Interpretation - Radiology Interpretation Radiology Interpretation By: Radiologist Radiology Results: No acute changes Critical Care Note - Critical Care Note Total Time (mins): 0 Course - Course Hematology/Chemistry: 07/19/18 13:05 07/19/18 13:05 Orders, Labs, Meds: Lab Review 07/19/18 07/19/18 07/19/18 13:00 13:05 13:05 WBC 7.46 RBC 3.61 L Hgb 11.0 L Hct 32.6 L MCV 90.3 MCH 30.5 MCHC 33.7 RDW Coeff of Aditi 12.7 Plt Count 147 Immature Gran % (Auto) 0.4 Neut % (Auto) 50.8 Lymph % (Auto) 41.3 [place] % (Auto) 6.0 Eos % (Auto) 1.2 Baso % (Auto) 0.3 Immature Gran # (Auto) 0.0 Neut # (Auto) 3.8 Lymph # (Auto) 3.1 [place] # (Auto) 0.5 Eos # (Auto) 0.1 Baso # (Auto) 0.0 Sodium 138 Potassium 3.8 Chloride 102 Carbon Dioxide 31 Anion Gap 8.8 BUN 10 Creatinine 0.67 Estimated GFR (MDRD) 100.00 BUN/Creatinine Ratio 14.92 Glucose 87 Calcium 9.4 Total Bilirubin 0.4 AST 14 L ALT 14 Alkaline Phosphatase 57 Total Protein 6.3 L Albumin 3.8 Globulin 2.5 Albumin/Globulin Ratio 1.52 Amylase 47 Lipase 8 Urine Color Yellow Urine Clarity Cloudy Urine pH 8.0 Ur Specific [place] 1.015 Urine Protein Negative Urine Glucose (UA) Negative Urine Ketones Negative Urine Blood Negative Urine Nitrite Negative Urine Bilirubin Negative Urine Urobilinogen 0.2 Ur Leukocyte Esterase Negative Ur Squamous Epith Cells Not present Amorphous Sediment 3+ Orders Category Date Time Status AMYLASE Stat LAB 07/19/18 12:51 Ordered CBC W/ AUTO DIFF Stat LAB 07/19/18 12:51 Ordered COMPREHENSIVE METABOLIC PANEL Stat LAB 07/19/18 12:51 Ordered LIPASE Stat LAB 07/19/18 12:51 Ordered URINALYSIS C & S IF INDICATED Stat LAB 07/19/18 12:[address] ABDOMEN/PELVIS WO CONTRAST Stat RADS 07/19/18 12:51 Ordered Vital Signs: Temp Pulse Resp BP Pulse Ox 07/19/18 12:34 99.0 F 82 16 113/70 99 Departure - Departure Time of Disposition: 13:56 Disposition: HOME SELF-CARE Discharge Problem: Abdominal pain Instructions: Abdominal Pain (ED) Condition: Good Pt referred to PMD for follow-up: No IPMP verified?: No Additional Instructions: Please call your Family Physician as soon as possible to schedule a follow-up appointment. Allergies/Adverse Reactions: Allergies No Known Allergies Allergy (Verified 07/19/18 12:33) Home Medications: Ambulatory Orders Clonazepam [Klonopin] 1 mg PO BID PRN 09/10/14 Tizanidine HCl [Zanaflex] 4 mg PO 3-4XD PRN 09/10/14 Dextroamphetamine/Amphetamine [Adderall 30 mg Tablet] 30 mg PO DAILY 05/23/17 Trazodone HCl [Desyrel] 50 mg PO DAILY 02/22/18
== END 2018-07-19 14:19 | disposition home or self-care (01) ==
LOC: ED 12:28
DX: R10.9 Unspecified abdominal pain (principal); G89.29 Other chronic pain; D64.9 Anemia, unspecified; R35.0 Frequency of micturition; F17.210 Nicotine dependence, cigarettes, uncomplicated
CPT/HCPCS: 36415; 80053; 81001; 82150; 82670; 82672; 83001; 83002; 83690; 84144; 84439; 84443; 85025; 99283

== ENCOUNTER 2018-09-26 16:23 | Outpatient (CLI) ==
--- NOTE | 2018-09-26 16:59 | DI ---
EXAM: Five views of the cervical spine. History: Cervicalgia. Findings: No acute fracture or subluxation of the cervical spine. No prevertebral soft tissue swelli ng. Predental space is not widened. Disc space heights are preserved. The oblique images demonstra te no significant bony neural foraminal narrowing. Impression: Unremarkable exam
--- NOTE | 2018-09-26 16:59 | DI ---
EXAM: Three views of the thoracic spine. History: Thoracic back pain. Findings: No acute fracture or subluxation of the thoracic spine. Disc space heights are preserved. No abnormal calcifications or radiopaque foreign bodies. Impression: Unremarkable radiograph of the thoracic spine
== END 2018-09-26 16:24 | disposition home or self-care (01) ==
LOC: RAD 16:23
PROVIDERS: ATTEND Pain Medicine Interventional Pain Medicine
DX: M54.2 Cervicalgia (principal); M54.6 Pain in thoracic spine

== ENCOUNTER 2019-01-10 21:09 | Outpatient (CLI) ==
[2019-01-10 21:26] VITALS: BMI 17.3
== END 2019-01-10 21:13 | disposition critical access hospital (66) ==
LOC: AMBL 21:09
PROVIDERS: ATTEND Internal Medicine Geriatric Medicine
DX: R11.10 Vomiting, unspecified (principal); R10.9 Unspecified abdominal pain

== ENCOUNTER 2019-01-10 21:19 | Emergency (ER) ==
[2019-01-10 21:26] VITALS: BP 143/85; TEMP 97.7; BMI 17.3
[2019-01-10] MEDS ORDERED: ZOFRAN 4 MG/2 ML IVP STA (21:37)
[2019-01-10] MEDS ORDERED: LACTATED RINGERS 1,000 ML IV STA (21:37)
[2019-01-10] MEDS ORDERED: PROTONIX IV IVP STA (21:37)
[2019-01-10] MEDS ORDERED: ZOFRAN ODT PO STA (21:37)
[2019-01-10] MEDS ORDERED: BENTYL IM STA (22:01)
[2019-01-10] MEDS ORDERED: PHENERGAN 25 MG/ML VIAL 25 MG in SODIUM CHLORIDE 50 ML IV STA (22:22)
--- NOTE | 2019-01-10 22:23 | ED.PDOC ---
General ED Provider: Dr. KASHMIR BROCK Chief Complaint: Nausea/Vomiting Stated Complaint: My stomach hurts and I have vomiting since 4 pm Time Seen by Physician: 22:20 Mode of Arrival: Walk-In Information Source: Patient Nursing and Triage Documentation Reviewed and Agree: Yes Does patient meet sepsis criteria?: No System Inflammatory Response Syndrome: Not Applicable Sepsis Protocol: For patient's 13 years and over: Temp is 96.8 and below OR 101 and greater Pulse >90 BPM Resp >20/minute Acutely Altered Mental Status Are patient's symptoms suggestive of a new infection, such as: -Pneumonia -Skin, Soft Tissue -Endocarditis -UTI -Bone, Joint Infection -Implantable Device -Acute Abdominal Infection -Wound Infection -Meningitis -Blood Stream Catheter Infection -Unknown GI Complaint Exam - Abdominal Pain Complaint/Exam Onset: Sudden Duration: 5 hours Symptoms Are: Still present Timing: Constant Initial Severity: Moderate Current Severity: Moderate Location of Pain: Epigastric Character: Reports: Cramping Aggravating: Reports: Food Alleviating: Reports: Vomiting Associated Signs and Symptoms: Reports: Nausea, Vomiting Review of Systems - Review Of Systems Constitutional: Reports: No symptoms Eyes: Reports: No symptoms Ears, Nose, Mouth, Throat: Reports: No symptoms Respiratory: Reports: No symptoms Cardiac: Reports: No symptoms GI: Reports: Abdominal pain, Nausea, Poor appetite, Vomiting : Reports: No symptoms Musculoskeletal: Reports: No symptoms Skin: Reports: No symptoms Neurological: Reports: Anxiety Endocrine: Reports: No symptoms Hematologic/Lymphatic: Reports: No symptoms All Other Systems: Reviewed and Negative Past Medical History - Past Medical History Previously Healthy: Yes Endocrine: Reports: None Cardiovascular: Reports: None Respiratory: Reports: None Hematological: Reports: None Gastrointestinal: Reports: Pancreatitis Genitourinary: Reports: None Neuro/Psych: Reports: Anxiety, Depression Musculoskeletal: Reports: Back Pain (CHRONIC" DEFECT ON NORCO") Cancer: Reports: None Last Menstrual Period: hysterectomy Other Pertinent Past Medical History: TONSILECTOMY, COLONOSCOPY, BREAST AUGMENTATION, DIANOSTIC LAPEROTOMY - Surgical History General Surgical History: Reports: Other, Tonsillectomy - Family History Family History: Reports: Unknown - Social History Smoking Status: Light tobacco smoker, Current every day smoker Hx Substance Use: No Alcohol Screening: None - Immunizations Tetanus Shot up to Date: No Physical Exam - Physical Exam Appearance: Ill-appearing Ill-appearing: Moderate Pain Distress: Severe Eyes: ALICE, EOMI Neck: Supple Respiratory: Airway patent, Breath sounds clear, Breath sounds equal, Respirations nonlabored Cardiovascular: RRR, Pulses normal, No rub, No murmur GI/: Soft, Tender (mild epigastric ) Musculoskeletal: Normal strength, ROM intact, No edema, No calf tenderness Skin: Warm, Dry, Normal color Neurological: Sensation intact, Motor intact, Alert, Oriented Psychiatric: Anxious Interpretation - Radiology Interpretation Radiology Interpretation By: Radiologist Radiology Results: Negative Exam Interpreted: CT Scan (Abdomen and Pelvis ) Re-Evaluation - Re-Evaluation Time of Re-Evaluation: 23:00 Status: Improved Pain Level: better Appearance: NAD Critical Care Note - Critical Care Note Total Time (mins): 0 Course - Course Hematology/Chemistry: 01/10/19 21:53 01/10/19 21:53 Orders, Labs, Meds: Lab Review 01/10/19 01/10/19 21:53 21:53 WBC 8.80 RBC 3.96 L Hgb 11.7 L Hct 34.8 L MCV 87.9 MCH 29.5 MCHC 33.6 RDW Coeff of Aditi 12.8 Plt Count 201 Immature Gran % (Auto) 0.2 Neut % (Auto) 75.5 Lymph % (Auto) 20.8 [place] % (Auto) 3.3 Eos % (Auto) 0.1 Baso % (Auto) 0.1 Immature Gran # (Auto) 0.0 Neut # (Auto) 6.6 Lymph # (Auto) 1.8 [place] # (Auto) 0.3 L Eos # (Auto) 0.0 Baso # (Auto) 0.0 Sodium 137.6 Potassium 4.33 Chloride 100.4 Carbon Dioxide 25.9 Anion Gap 15.63 BUN 10.9 Creatinine 0.54 L Estimated GFR (MDRD) 128.00 BUN/Creatinine Ratio 20.18 Glucose 135.4 H Calcium 9.43 Total Bilirubin 0.96 AST 29.3 ALT 20.6 Alkaline Phosphatase 63.6 Total Protein 7.46 Albumin 4.65 Globulin 2.81 Albumin/Globulin Ratio 1.65 Amylase 79.8 Lipase 44.9 Orders Category Date Time Status ED IV/MEDIPORT/POWERPORT .ONCE EMERGENCY 01/10/19 21:37 Active AMYLASE Stat LAB 01/10/19 21:53 Completed CBC W/ AUTO DIFF Stat LAB 01/10/19 21:53 Completed COMPREHENSIVE METABOLIC PANEL Stat LAB 01/10/19 21:53 Completed LIPASE Stat LAB 01/10/19 21:53 Completed 0.9 % Sodium Chloride [Saline Flush] MEDS 01/10/19 21:37 Discontinued 1 syr IVF PRN PRN Dicyclomine Inj [Bentyl] MEDS 01/10/19 22:01 Discontinued 20 mg IM ONCE STA Ondansetron HCl/Pf [Zofran 4 mg/2 ml] MEDS 01/10/19 21:37 Discontinued 4 mg IVP ONCE STA Ondansetron [Zofran Odt] MEDS 01/10/19 21:37 Discontinued 4 mg PO ONCE STA Pantoprazole Sodium [Protonix IV] MEDS 01/10/19 21:37 Discontinued 40 mg IVP ONCE STA Promethazine HCl [Phenergan 25 mg/ml Vial] MEDS 01/10/19 22:26 Discontinued 25 mg .ROUTE .STK-MED ONE Promethazine HCl [Phenergan 25 mg/ml Vial] 25 mg MEDS 01/10/19 22:22 Discontinued 0.9 % Sodium Chloride [Sodium Chloride] 50 ml IV ONCE Ringers Lactated Solution [Lactated Ringers] 1,000 ml MEDS 01/10/19 21:[address] ABDOMEN/PELVIS WO CONTRAST Stat RADS 01/10/19 22:23 Completed Medications Discontinued Medications Generic Name Dose Route Start Last Admin Trade Name Freq PRN Reason Stop Dose Admin Dicyclomine HCl 20 mg 01/10/19 22:01 01/10/19 22:10 Bentyl IM 01/10/19 22:02 20 mg ONCE STA Administration Lactated Ringer's 1,000 mls @ 1,000 mls/hr 01/10/19 21:37 01/10/19 21:54 Lactated Ringers IV 01/10/19 22:36 1,000 mls/hr BOLUS STA Administration Promethazine HCl 25 mg/ Sodium 51 mls @ 75 mls/hr 01/10/19 22:22 01/10/19 22: 37 Chloride IV 01/10/19 23:02 75 mls/hr ONCE STA Administration Ondansetron HCl 4 mg 01/10/19 21:37 01/10/19 21:54 Zofran Odt PO 01/10/19 21:38 4 mg ONCE STA Administration Ondansetron HCl 4 mg 01/10/19 21:37 01/10/19 21:53 Zofran 4 Mg/2 Ml IVP 01/10/19 21:38 4 mg ONCE STA Administration Pantoprazole Sodium 40 mg 01/10/19 21:37 01/10/19 21:53 Protonix Iv IVP 01/10/19 21:38 40 mg ONCE STA Administration Sodium Chloride 1 syr 01/10/19 21:37 Saline Flush IVF PRN PRN To flush IV Vital Signs: Temp Pulse Resp BP Pulse Ox 01/10/19 21:19 97.7 F 69 20 143/85 H 98 Departure - Departure Time of Disposition: 23:07 Disposition: HOME SELF-CARE Discharge Problem: Nausea, Vomiting, Gastritis and duodenitis Instructions: Gastritis (ED), Acute Nausea and Vomiting (ED), Abdominal Pain ( ED), Duodenitis (ED) Condition: Fair Pt referred to PMD for follow-up: Yes IPMP verified?: No Additional Instructions: Push fluids Take medications as prescribed Follow up with PCP in 3 days Prescriptions: Dicyclomine HCl [Bentyl] 10 mg PO TID PRN #20 capsule PRN Reason: Abdominal Pain Promethazine HCl [Phenergan Tab] 25 mg PO Q6H PRN #15 tablet PRN Reason: Nausea / Vomiting Allergies/Adverse Reactions: Allergies No Known Allergies Allergy (Verified 01/10/19 21:28) Home Medications: Ambulatory Orders Tizanidine HCl [Zanaflex] 4 mg PO 3-4XD PRN 09/10/14 Trazodone HCl [Desyrel] 50 mg PO DAILY 02/22/18 Hydrocodone/Acetaminophen [[place] 7.5-325 Tablet] 1 each PO BID 09/12/18 Tizanidine HCl [Zanaflex] 4 mg PO TID 09/12/18 Dicyclomine HCl [Bentyl] 10 mg PO TID PRN #20 capsule 01/10/19 Promethazine HCl [Phenergan Tab] 25 mg PO Q6H PRN #15 tablet 01/10/19 Disposition Discussed With: Patient, Family
[2019-01-10] MEDS ORDERED: PHENERGAN 25 MG/ML VIAL ONE (22:26)
--- NOTE | 2019-01-10 23:11 | CT ---
EXAM: CT scan abdomen pelvis without contrast HISTORY: Abdominal pain COMPARISON: CT scan abdomen pelvis of 07/19/2018 FINDINGS: Contiguous axial images obtained through the abdomen pelvis without contrast utilizing 3-m m collimation sagittal and coronal reconstructions were imaged and reviewed.. The visualized lung ba ses are clear. The gallbladder is fluid filled without cholelithiasis. The liver, pancreas, spleen and adrenal glands have normal unenhanced CT appearance. The kidneys are morphologically normal. Th e abdominal aorta is normal in course and caliber.. There is partial visualization of the appendix w hich appears normal. There is no free fluid or inflammatory changes.. There is a mild amount of col onic fecal stasis. There is bilateral pars defect at L5. IMPRESSION: No acute intra-abdominal findings. Partial visualization of appendix which appears normal. Mild colonic fecal stasis. No free fluid or inflammatory changes
== END 2019-01-10 23:40 | disposition home or self-care (01) ==
LOC: ED 21:19
DX: K29.70 Gastritis, unspecified, without bleeding (principal); K29.80 Duodenitis without bleeding; F17.210 Nicotine dependence, cigarettes, uncomplicated
CPT/HCPCS: 36415; 80053; 82150; 83690; 85025; 96361; 96365; 96372; 96375; 99283

== ENCOUNTER 2019-01-15 04:03 | Emergency (ER) ==
[2019-01-15 04:22] VITALS: BP 123/82; TEMP 99.9; BMI 16.0
[2019-01-15] MEDS: ZOFRAN 4 MG/2 ML IVP STA (05:17)
[2019-01-15] MEDS: DEXTROSE 5%-NS IV SOLUTION 1,000 ML IV STA (05:17)
--- NOTE | 2019-01-15 06:14 | DI ---
EXAM: Abdomen, single view, 01/15/2019 HISTORY: Vomiting COMPARISON: None. FINDINGS / IMPRESSION: Nonobstructive bowel gas pattern.
--- NOTE | 2019-01-15 06:17 | ED.PDOC ---
General ED Provider: Dr. PEPE CHANDRA MD Chief Complaint: Abdominal Pain Stated Complaint: nausea vomiting Time Seen by Physician: 03:15 Mode of Arrival: Walk-In Information Source: Patient Exam Limitations: No limitations Nursing and Triage Documentation Reviewed and Agree: Yes Does patient meet sepsis criteria?: No If yes, has appropriate treatment been initiated?: Yes System Inflammatory Response Syndrome: Not Applicable Sepsis Protocol: For patient's 13 years and over: Temp is 96.8 and below OR 101 and greater Pulse >90 BPM Resp >20/minute Acutely Altered Mental Status Are patient's symptoms suggestive of a new infection, such as: -Pneumonia -Skin, Soft Tissue -Endocarditis -UTI -Bone, Joint Infection -Implantable Device -Acute Abdominal Infection -Wound Infection -Meningitis -Blood Stream Catheter Infection -Unknown Review of Systems - Review Of Systems Constitutional: Reports: No symptoms Eyes: Reports: No symptoms Ears, Nose, Mouth, Throat: Reports: No symptoms Respiratory: Reports: No symptoms Cardiac: Reports: No symptoms GI: Reports: Nausea, Vomiting : Reports: No symptoms Musculoskeletal: Reports: No symptoms Skin: Reports: No symptoms Neurological: Reports: No symptoms Endocrine: Reports: No symptoms Hematologic/Lymphatic: Reports: No symptoms All Other Systems: Reviewed and Negative Past Medical History - Past Medical History Previously Healthy: Yes Endocrine: Reports: None Cardiovascular: Reports: None Respiratory: Reports: None Hematological: Reports: None Gastrointestinal: Reports: Pancreatitis Genitourinary: Reports: None Neuro/Psych: Reports: Anxiety, Depression Musculoskeletal: Reports: Back Pain (CHRONIC" DEFECT ON NORCO") Cancer: Reports: None Last Menstrual Period: HAS HAS A HYSTERECTOMY Other Pertinent Past Medical History: TONSILECTOMY, COLONOSCOPY, BREAST AUGMENTATION, DIANOSTIC LAPEROTOMY - Surgical History General Surgical History: Reports: Other, Tonsillectomy - Family History Family History: Reports: Unknown - Social History Smoking Status: Light tobacco smoker, Current every day smoker Hx Substance Use: No Alcohol Screening: None - Immunizations Tetanus Shot up to Date: (UNKNOWN) Physical Exam - Physical Exam Appearance: Well-appearing, No pain distress, Well-nourished Ill-appearing: Mild Pain Distress: None Eyes: ALICE, EOMI, Conjunctiva clear ENT: Ears normal, Nose normal, Oropharynx normal Neck: Supple Respiratory: Airway patent, Breath sounds clear, Breath sounds equal, Respirations nonlabored Cardiovascular: RRR GI/: Soft, Nontender, No masses, Bowel sounds hypoactive Musculoskeletal: Normal strength, ROM intact, No edema, No calf tenderness Skin: Warm Neurological: Sensation intact Psychiatric: Anxious Interpretation - Radiology Interpretation Radiology Results: Negative Critical Care Note - Critical Care Note Total Time (mins): 0 Course - Course Hematology/Chemistry: 01/15/19 04:50 01/15/19 04:50 Orders, Labs, Meds: Lab Review 01/15/19 01/15/19 04:50 04:50 WBC 9.26 RBC 4.34 Hgb 12.8 Hct 37.3 MCV 85.9 MCH 29.5 MCHC 34.3 RDW Coeff of Aditi 12.6 Plt Count 247 Immature Gran % (Auto) 0.6 Neut % (Auto) 59.3 Lymph % (Auto) 30.8 [place] % (Auto) 8.4 Eos % (Auto) 0.4 Baso % (Auto) 0.5 Immature Gran # (Auto) 0.1 Neut # (Auto) 5.5 Lymph # (Auto) 2.9 [place] # (Auto) 0.8 Eos # (Auto) 0.0 Baso # (Auto) 0.1 Sodium 136.8 Potassium 2.94 L Chloride 96.7 L Carbon Dioxide 28.5 Anion Gap 14.54 BUN 9.0 Creatinine 0.49 L Estimated GFR (MDRD) 143.00 BUN/Creatinine Ratio 18.36 Glucose 121.7 H Calcium 9.19 Orders Category Date Time Status BMP [BASIC METABOLIC PANEL] Stat LAB 01/15/19 04:50 Completed CBC W/ AUTO DIFF Stat LAB 01/15/19 04:50 Completed Dextrose 5 % and 0.9 % NaCl [Dextrose 5%-Ns IV Solution MEDS 01/15/19 04:44 Discontinued ] 1,000 ml IV BOLUS Ondansetron HCl/Pf [Zofran 4 mg/2 ml] MEDS 01/15/19 04:44 Discontinued 4 mg IVP ONCE STA KUB [ABDOMEN 1 VIEW] Stat RADS 01/15/19 04:43 Completed Medications Discontinued Medications Generic Name Dose Route Start Last Admin Trade Name Freq PRN Reason Stop Dose Admin Dextrose/Sodium Chloride 1,000 mls @ 1,000 mls/hr 01/15/19 04:44 01/15/19 05: 17 Dextrose 5%-Ns Iv Solution IV 01/15/19 05:43 1,000 mls/hr BOLUS STA Administration Ondansetron HCl 4 mg 01/15/19 04:44 01/15/19 05:17 Zofran 4 Mg/2 Ml IVP 01/15/19 04:45 4 mg ONCE STA Administration Vital Signs: Temp Pulse Resp BP Pulse Ox 01/15/19 04:07 99.9 F H 96 H 18 123/82 98 Departure - Departure Time of Disposition: 06:20 Disposition: HOME SELF-CARE Discharge Problem: Nausea & vomiting, Gastroenteritis Instructions: Gastroenteritis (ED) Condition: Good Pt referred to PMD for follow-up: Yes IPMP verified?: No Prescriptions: Promethazine HCl [Phenergan Tab] 25 mg PO Q6H 7 Days #10 tablet NS Allergies/Adverse Reactions: Allergies dicyclomine [From Bentyl] Adverse Reaction (Verified 01/15/19 04:23) HALLUCINATIONS latex Adverse Reaction (Verified 01/15/19 04:22) Home Medications: Ambulatory Orders Hydrocodone/Acetaminophen [[place] 7.5-325 Tablet] 1 each PO BID 09/12/18 Tizanidine HCl [Zanaflex] 4 mg PO TID 09/12/18 Promethazine HCl [Phenergan Tab] 25 mg PO Q6H PRN #15 tablet 01/10/19 Hydroxyzine HCl 50 mg PO QID PRN 01/15/19 Promethazine HCl [Phenergan Tab] 25 mg PO Q6H 7 Days #10 tablet NS 01/15/19
== END 2019-01-15 06:30 | disposition home or self-care (01) ==
LOC: ED 04:03
DX: R10.9 Unspecified abdominal pain (principal); R11.2 Nausea with vomiting, unspecified; K52.9 Noninfective gastroenteritis and colitis, unspecified
CPT/HCPCS: 36415; 80048; 85025; 96360; 96375; 99283

== ENCOUNTER 2019-04-03 06:05 | Emergency (ER) ==
[2019-04-03 06:14] VITALS: BP 121/72; TEMP 99.6; BMI 18.6
== END 2019-04-03 06:30 | disposition left against medical advice (07) ==
LOC: ED 06:05
DX: R11.10 Vomiting, unspecified (principal); R42 Dizziness and giddiness; R10.9 Unspecified abdominal pain; Z72.0 Tobacco use

== ENCOUNTER 2019-05-19 13:54 | Observation (INO) ==
--- NOTE | 2019-05-19 14:14 | ED.PDOC ---
General Stated Complaint: nausea & vomiting Time Seen by Physician: 14:04 Mode of Arrival: Walk-In Information Source: Patient Exam Limitations: No limitations Nursing and Triage Documentation Reviewed and Agree: Yes Does patient meet sepsis criteria?: No If yes, has appropriate treatment been initiated?: Yes System Inflammatory Response Syndrome: Not Applicable <PEPE CHANDRA - Last Filed: 05/19/19 14:27> <PEPE PUENTES - Last Filed: 05/19/19 17:16> ED Provider: Dr. PEPE MA-ER Chief Complaint: Nausea/Vomiting Primary Care Provider: PEPE AM Sepsis Protocol: For patient's 13 years and over: Temp is 96.8 and below OR 101 and greater Pulse >90 BPM Resp >20/minute Acutely Altered Mental Status Are patient's symptoms suggestive of a new infection, such as: -Pneumonia -Skin, Soft Tissue -Endocarditis -UTI -Bone, Joint Infection -Implantable Device -Acute Abdominal Infection -Wound Infection -Meningitis -Blood Stream Catheter Infection -Unknown Review of Systems - Review Of Systems Constitutional: Reports: Chills Eyes: Reports: No symptoms Ears, Nose, Mouth, Throat: Reports: No symptoms Respiratory: Reports: No symptoms Cardiac: Reports: No symptoms GI: Reports: Abdominal pain, Nausea, Vomiting : Reports: No symptoms Musculoskeletal: Reports: No symptoms Skin: Reports: No symptoms Neurological: Reports: No symptoms Endocrine: Reports: No symptoms Hematologic/Lymphatic: Reports: No symptoms All Other Systems: Reviewed and Negative <PEPE CHANDRA - Last Filed: 05/19/19 14:27> Past Medical History - Past Medical History Previously Healthy: Yes Endocrine: Reports: None Cardiovascular: Reports: None Respiratory: Reports: None Hematological: Reports: None Gastrointestinal: Reports: Pancreatitis Genitourinary: Reports: None Neuro/Psych: Reports: Anxiety, Depression Musculoskeletal: Reports: Back Pain (CHRONIC" DEFECT ON NORCO") Cancer: Reports: None Last Menstrual Period: hysterectomy Other Pertinent Past Medical History: TONSILECTOMY, COLONOSCOPY, BREAST AUGMENTATION, DIANOSTIC LAPEROTOMY - Surgical History General Surgical History: Reports: Other, Tonsillectomy - Family History Family History: Reports: Unknown - Social History Smoking Status: Current every day smoker Hx Substance Use: No Alcohol Screening: Occasionally - Immunizations Tetanus Shot up to Date: (unsure) <CORAZONPEPE - Last Filed: 05/19/19 14:27> Physical Exam - Physical Exam Appearance: Well-appearing Ill-appearing: Mild Pain Distress: None Eyes: ALICE, EOMI, Conjunctiva clear ENT: Ears normal, Nose normal, Oropharynx normal Respiratory: Airway patent, Breath sounds clear, Breath sounds equal, Respirations nonlabored Cardiovascular: RRR, Pulses normal, No rub, No murmur GI/: Bowel sounds hypoactive Musculoskeletal: Normal strength, ROM intact, No edema, No calf tenderness Skin: Warm, Dry, Normal color Neurological: Sensation intact, Motor intact, Reflexes intact, Cranial nerves intact, Alert, Oriented Psychiatric: Affect appropriate, Mood appropriate <PEPE CHANDRA - Last Filed: 05/19/19 14:27> Critical Care Note - Critical Care Note Total Time (mins): 0 <PEPE CHANDRA - Last Filed: 05/19/19 14:27> Course - Course Hematology/Chemistry: 05/19/19 14:23 05/19/19 14:23 <PEPE PUENTES - Last Filed: 05/19/19 17:16> - Course Orders, Labs, Meds: Lab Review 05/19/19 05/19/19 14:23 14:23 WBC 11.13 H RBC 4.42 Hgb 13.3 Hct 40.0 MCV 90.5 MCH 30.1 MCHC 33.3 RDW Coeff of Aditi 14.0 Plt Count 236 Sodium 142.4 Potassium 3.91 Chloride 101.3 Carbon Dioxide 28.1 Anion Gap 16.91 BUN 9.8 Creatinine 0.59 L Estimated GFR (MDRD) 115.00 BUN/Creatinine Ratio 16.61 Glucose 134.2 H Calcium 9.44 Amylase 55.1 Orders Category Date Time Status IV [ED IV/MEDIPORT/POWERPORT] .ONCE EMERGENCY 05/19/19 14:14 Active AMYLASE Stat LAB 05/19/19 14:23 Completed BMP [BASIC METABOLIC PANEL] Stat LAB 05/19/19 14:23 Completed CBC HEMOGRAM ONLY Stat LAB 05/19/19 14:23 Completed 0.9 % Sodium Chloride [Saline Flush] MEDS 05/19/19 14:14 Ordered 1 syr IVF PRN PRN Ketorolac Tromethamine [Toradol] MEDS 05/19/19 14:15 Discontinued 30 mg IVP ONCE STA Lorazepam [Ativan] MEDS 05/19/19 15:27 Discontinued 1 mg IVP ONCE STA Ondansetron HCl/Pf [Zofran 4 mg/2 ml] MEDS 05/19/19 14:15 Discontinued 4 mg IVP ONCE STA Ringers Lactated Solution [Lactated Ringers] 1,000 ml MEDS 05/19/19 14:27 Discontinued IV BOLUS Medications Generic Name Dose Route Start Last Admin Trade Name Freq PRN Reason Stop Dose Admin Sodium Chloride 1 syr 05/19/19 14:14 05/19/19 14:35 Saline Flush IVF 1 syr PRN PRN Administration To flush IV Discontinued Medications Generic Name Dose Route Start Last Admin Trade Name Freq PRN Reason Stop Dose Admin Lactated Ringer's 1,000 mls @ 1,000 mls/hr 05/19/19 14:27 05/19/19 14:34 Lactated Ringers IV 05/19/19 15:26 1,000 mls/hr BOLUS STA Administration Ketorolac Tromethamine 30 mg 05/19/19 14:15 05/19/19 14:37 Toradol IVP 05/19/19 14:16 30 mg ONCE STA Administration Lorazepam 1 mg 05/19/19 15:27 05/19/19 15:40 Ativan IVP 05/19/19 15:28 1 mg ONCE STA Administration Ondansetron HCl 4 mg 05/19/19 14:15 05/19/19 14:36 Zofran 4 Mg/2 Ml IVP 05/19/19 14:16 4 mg ONCE STA Administration Vital Signs: Temp Pulse Resp BP Pulse Ox 05/19/19 13:55 98.5 F 68 18 131/83 98 Departure <PEPE CHANDRA - Last Filed: 05/19/19 14:27> - Departure Time of Disposition: 17:16 Pt referred to PMD for follow-up: Yes IPMP verified?: No Disposition Discussed With: Patient <PEPE PUENTES - Last Filed: 05/19/19 17:16> - Departure Disposition: PLACED OBSERVATION Discharge Problem: Nausea, Vomiting Condition: Stable Allergies/Adverse Reactions: Allergies dicyclomine [From Bentyl] Adverse Reaction (Verified 05/19/19 14:08) HALLUCINATIONS latex Adverse Reaction (Verified 05/19/19 14:08) Rash Home Medications: Ambulatory Orders Hydrocodone/Acetaminophen [[place] 7.5-325 Tablet] 1 each PO BID 09/12/18 Tizanidine HCl [Zanaflex] 4 mg PO TID 09/12/18
[2019-05-19] MEDS ORDERED: ZOFRAN 4 MG/2 ML IVP STA (14:15)
[2019-05-19] MEDS ORDERED: TORADOL IVP STA (14:15)
[2019-05-19] MEDS ORDERED: LACTATED RINGERS 1,000 ML IV STA (14:27)
[2019-05-19] MEDS ORDERED: ATIVAN IVP STA (15:27)
[2019-05-19] MEDS ORDERED: ATIVAN IVP PRN (17:21)
[2019-05-19] MEDS: ZOFRAN 4 MG/2 ML IVP PRN (17:42)
[2019-05-19] MEDS: SODIUM CHLORIDE 0.9%-KCL 20 MEQ 1,000 ML IV SCH (18:19)
[2019-05-19] MEDS: PROTONIX IV IVP SCH (18:22)
[2019-05-19 18:37] VITALS: BMI 17.7
[2019-05-19] MEDS ORDERED: NON-FORMULARY MEDICATION (Trazodone Hcl [Trazodone Hcl] 150 MG) PO SCH (21:00)
[2019-05-19] MEDS ORDERED: NORCO 7.5-325 PO SCH (21:00)
[2019-05-19] MEDS ORDERED: DESYREL ONE (21:28)
[2019-05-19] MEDS: ZANAFLEX PO SCH (21:30)
[2019-05-19] MEDS: NORCO 7.5-325 PO SCH (21:30)
--- NOTE | 2019-05-19 21:32 | DI ---
Exam: Single view of the abdomen. Comparison: 01/15/2019. Reason for exam: Vomiting. FINDINGS: Nonspecific, nonobstructive bowel gas pattern with a moderate stool burden seen throughout the abdomen and pelvis. Impression: Nonspecific, nonobstructive bowel gas pattern.
[2019-05-20] MEDS: ZOFRAN 4 MG/2 ML IVP PRN ×3 (00:53→13:16)
[2019-05-20] MEDS ORDERED: ATIVAN ONE (03:02)
[2019-05-20] MEDS: PROTONIX IV IVP SCH ×2 (03:08→13:16)
[2019-05-20] MEDS ORDERED: ATIVAN IVP PRN (09:14)
[2019-05-20] MEDS: NORCO 7.5-325 PO SCH (09:16)
[2019-05-20] MEDS: ZANAFLEX PO SCH ×2 (09:16→14:57)
[2019-05-20] MEDS: SODIUM CHLORIDE 0.9%-KCL 20 MEQ 1,000 ML IV SCH (09:21)
[2019-05-20 13:15] VITALS: BP 129/77; TEMP 98.9
[2019-05-20] MEDS ORDERED: DESYREL PO SCH (21:00)
--- NOTE | 2019-06-07 11:48 | SSS ---
DISCUSSION: This is a 39 year old lady who presented with persistent nausea and vomiting. She was in a court custody case that was unfavorable and presented very upset with nausea and vomiting that was uncontrolled despite the use of outpatient medications. She presented to the emergency department with the above history. MEDICATIONS: [place] Zanaflex ALLERGIES: Dicyclomine Latex PAST MEDICAL HISTORY: Tonsillectomy Colonoscopy Breast augmentation Diagnostic laparoscopy History of chronic back pain SOCIAL HISTORY: One pack per day smoker. Occasional use of alcohol. FAMILY HISTORY: Reviewed and thought not to be pertinent to discussion. REVIEW OF SYSTEMS: No headaches, visual changes, tinnitus, chest pain, shortness of breath, hemoptysis, blood in the stool, urinary symptoms or seizures. PHYSICAL EXAMINATION: VITAL SIGNS: Temperature 98.5, pulse 68, respirations 20 and blood pressure 131/ 85. HEENT: Pupils are round. NECK: Supple. CHEST: Clear. CARDIOVASCULAR: Regular rate and rhythm. ABDOMEN: Soft, nontender. EXTREMITIES: Distal extremities without cyanosis or edema. CLINICAL COURSE: The patient was admitted to my services for observation. She was given supplemental IV fluids and antiemetics as well as medications for anxiety. She seemed to settle down and felt better. At this point she was discharged from observation to home and will followup with Mental Health. YARIEL
== END 2019-05-20 18:02 | disposition home or self-care (01) ==
LOC: ED 13:54 → MEDSURG B 17:25
PROVIDERS: ADMIT Family Medicine; ATTEND Family Medicine
DX: F41.9 Anxiety disorder, unspecified

== ENCOUNTER 2019-05-21 03:04 | Emergency (ER) ==
[2019-05-21 03:15] VITALS: BP 135/88; TEMP 99.1; BMI 19.1
[2019-05-21] MEDS ORDERED: PHENERGAN 25 MG/ML VIAL IM STA (03:27)
[2019-05-21] MEDS ORDERED: STADOL IM STA (03:39)
--- NOTE | 2019-05-21 04:33 | ED.PDOC ---
General ED Provider: Dr. PEPE MA-ER Chief Complaint: Nausea/Vomiting Stated Complaint: has had vomiting she feels due to stress of life--just finished child custody court case--couldnt get scrpts filled last night Time Seen by Physician: 03:10 Mode of Arrival: Walk-In Information Source: Patient Exam Limitations: No limitations Primary Care Provider: PEPE MA Nursing and Triage Documentation Reviewed and Agree: Yes Does patient meet sepsis criteria?: No System Inflammatory Response Syndrome: Not Applicable Sepsis Protocol: For patient's 13 years and over: Temp is 96.8 and below OR 101 and greater Pulse >90 BPM Resp >20/minute Acutely Altered Mental Status Are patient's symptoms suggestive of a new infection, such as: -Pneumonia -Skin, Soft Tissue -Endocarditis -UTI -Bone, Joint Infection -Implantable Device -Acute Abdominal Infection -Wound Infection -Meningitis -Blood Stream Catheter Infection -Unknown GI Complaint Exam - Vomiting/Diarrhea Complaint/Exam Onset/Duration: a few days ago Symptoms Are: Still present Initial Severity: Mild Current Severity: Mild Character of Vomiting: Reports: Non-bilious Aggravating: Reports: None Alleviating: Reports: None Associated Signs and Symptoms: Reports: Abdominal pain, Cramping Related History: Reports: Similar episode Non-GI Risk Factors: Reports: None Surgical Obstruction Risk Factors: Reports: None Abdominal Findings: Present: None K[place]ul Respirations Present: No Differential Diagnoses: Other Review of Systems - Review Of Systems Constitutional: Reports: No symptoms Eyes: Reports: No symptoms Ears, Nose, Mouth, Throat: Reports: No symptoms Respiratory: Reports: No symptoms Cardiac: Reports: No symptoms GI: Reports: Abdominal pain, Nausea, Vomiting : Reports: No symptoms Musculoskeletal: Reports: No symptoms Skin: Reports: No symptoms Neurological: Reports: No symptoms Endocrine: Reports: No symptoms Hematologic/Lymphatic: Reports: No symptoms All Other Systems: Reviewed and Negative Past Medical History - Past Medical History Previously Healthy: Yes Endocrine: Reports: None Cardiovascular: Reports: None Respiratory: Reports: None Hematological: Reports: None Gastrointestinal: Reports: Pancreatitis Genitourinary: Reports: None Neuro/Psych: Reports: Anxiety, Depression Musculoskeletal: Reports: Back Pain (CHRONIC" DEFECT ON NORCO") Cancer: Reports: None Last Menstrual Period: PT HAS HAD A HYSTERECTOMY Other Pertinent Past Medical History: TONSILECTOMY, COLONOSCOPY, BREAST AUGMENTATION, DIANOSTIC LAPEROTOMY - Surgical History General Surgical History: Reports: Other, Tonsillectomy - Family History Family History: Reports: Unknown - Social History Smoking Status: Current every day smoker, Light tobacco smoker Hx Substance Use: No Alcohol Screening: Occasionally - Immunizations Tetanus Shot up to Date: (UNKNOWN) Physical Exam - Physical Exam Appearance: Well-appearing, No pain distress, Well-nourished Eyes: ALICE, EOMI, Conjunctiva clear ENT: Ears normal, Nose normal, Oropharynx normal Neck: Supple Respiratory: Airway patent, Breath sounds clear, Breath sounds equal, Respirations nonlabored Cardiovascular: RRR, Pulses normal, No rub, No murmur GI/: Soft, Nontender, No masses, Bowel sounds normal, No Organomegaly Musculoskeletal: Normal strength, ROM intact, No edema, No calf tenderness Skin: Warm, Dry, Normal color Neurological: Sensation intact, Motor intact, Reflexes intact, Cranial nerves intact, Alert, Oriented Psychiatric: Affect appropriate, Mood appropriate Critical Care Note - Critical Care Note Total Time (mins): 0 Course - Course Orders, Labs, Meds: Orders Category Date Time Status Butorphanol Tartrate [Stadol] MEDS 05/21/19 03:39 Discontinued 2 mg IM ONCE STA Promethazine HCl [Phenergan 25 mg/ml Vial] MEDS 05/21/19 03:27 Discontinued 25 mg IM ONCE STA Medications Discontinued Medications Generic Name Dose Route Start Last Admin Trade Name Thaq PRN Reason Stop Dose Admin Butorphanol Tartrate 2 mg 05/21/19 03:39 05/21/19 03:55 Stadol IM 05/21/19 03:40 2 mg ONCE STA Administration Promethazine HCl 25 mg 05/21/19 03:27 05/21/19 03:36 Phenergan 25 Mg/Ml Vial IM 05/21/19 03:28 25 mg ONCE STA Administration Vital Signs: Temp Pulse Resp BP Pulse Ox 05/21/19 03:04 99.1 F 54 L 18 135/88 97 Departure - Departure Time of Disposition: 04:33 Disposition: HOME SELF-CARE Discharge Problem: Vomiting Abdominal pain Qualifiers: Abdominal location: generalized Qualified Code(s): R10.84 - Generalized abdominal pain Instructions: Chronic Abdominal Pain (ED) Condition: Good Pt referred to PMD for follow-up: Yes IPMP verified?: No Additional Instructions: get meds filled this am---f/u with pcp this week Allergies/Adverse Reactions: Allergies dicyclomine [From Bentyl] Adverse Reaction (Verified 05/21/19 03:41) HALLUCINATIONS PT STATES SHE IS NOT ALLERGIC TO THIS MED, SHE STATES THAT SHE HAS HAD IT AND STATES IT WORKS FOR HER, HAD HALLUCINATIONS AT ONE TIME WITH THE BENTYL, NO ALLERGIC REACTIONS latex Adverse Reaction (Verified 05/21/19 03:15) Rash Home Medications: Ambulatory Orders Hydrocodone/Acetaminophen [[place] 7.5-325 Tablet] 1 each PO BID 09/12/18 Tizanidine HCl [Zanaflex] 4 mg PO TID 09/12/18 Ondansetron HCl [Zofran] 4 mg PO Q4H PRN #10 tablet 05/20/19 Disposition Discussed With: Patient
== END 2019-05-21 06:25 | disposition home or self-care (01) ==
LOC: ED 03:04
DX: R11.2 Nausea with vomiting, unspecified (principal); R10.84 Generalized abdominal pain; F17.210 Nicotine dependence, cigarettes, uncomplicated
CPT/HCPCS: 96372; 99282

== ENCOUNTER 2019-06-25 04:11 | Emergency (ER) ==
[2019-06-25 04:16] VITALS: BP 124/74; TEMP 97.5; BMI 19.5
== END 2019-06-25 06:38 | disposition home or self-care (01) ==
LOC: ED 04:11
DX: R10.13 Epigastric pain (principal); G43.A0 Cyclical vomiting, in migraine, not intractable; F17.210 Nicotine dependence, cigarettes, uncomplicated
CPT/HCPCS: 96372; 99282

== ENCOUNTER 2019-06-26 | Emergency (ER) | END 2019-06-26 04:00 | disposition home or self-care (01) | CPT/HCPCS: 36415; 80053; 80306; 81001; 82150; 82550; 82553; 83690; 84484; 85025; 85651; 86677; 87086; 93005; 93010; 96361; 96365; 96375; 99284 ==

== ENCOUNTER 2019-07-01 06:54 | Observation (INO) ==
[2019-07-01 07:02] VITALS: BMI 18.3
[2019-07-01] MEDS ORDERED: DILAUDID 1 MG/ML SYRINGE IVP STA (07:15)
[2019-07-01] MEDS ORDERED: PHENERGAN 25 MG/ML VIAL 25 MG in SODIUM CHLORIDE 50 ML IV STA (07:16)
[2019-07-01] MEDS ORDERED: PHENERGAN 25 MG/ML VIAL ONE (07:21)
[2019-07-01] MEDS: SODIUM CHLORIDE 1,000 ML IV STA ×2 (07:48→17:03)
--- NOTE | 2019-07-01 08:57 | CT ---
EXAM: CT of the abdomen pelvis without contrast History: Nausea and body aches, abdominal pain, diarrhea and vomiting. Comparison: CT abdomen pelvis 06/29/2019 Technique: Multiplanar CT images through the abdomen pelvis were obtained without the administration of IV contrast Findings: Lung bases are clear. No acute osseous abnormalities. 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 No gallstones identified by CT. Gallbladder is not well distended. No renal stones and no hydroneph rosis. No perinephric inflammation. The visualized appendix is not dilated or inflamed. No peripan creatic inflammation. No focal liver or splenic lesions. No bowel obstruction. No bowel wall thick ening. No bladder wall thickening. Uterus is not seen and likely has been surgically removed. No p erirectal inflammation. No free air and no ascites. No inflammatory stranding. No abdominal aortic aneurysm. No pathologically enlarged lymph nodes. Impression: No acute intra-abdominal or pelvic process
--- NOTE | 2019-07-01 09:55 | ED.PDOC ---
General ED Provider: Dr. PEPE MA-ER Chief Complaint: Nausea/Vomiting Stated Complaint: im having diarrhea and maybe a fever--im out of my pain meds Time Seen by Physician: 07:00 Mode of Arrival: Walk-In Information Source: Patient Exam Limitations: No limitations Primary Care Provider: PEPE MA Nursing and Triage Documentation Reviewed and Agree: Yes Does patient meet sepsis criteria?: No System Inflammatory Response Syndrome: Not Applicable Sepsis Protocol: For patient's 13 years and over: Temp is 96.8 and below OR 101 and greater Pulse >90 BPM Resp >20/minute Acutely Altered Mental Status Are patient's symptoms suggestive of a new infection, such as: -Pneumonia -Skin, Soft Tissue -Endocarditis -UTI -Bone, Joint Infection -Implantable Device -Acute Abdominal Infection -Wound Infection -Meningitis -Blood Stream Catheter Infection -Unknown GI Complaint Exam - Abdominal Pain Complaint/Exam Onset: Gradual Duration: several days Symptoms Are: Still present Timing: Intermittent Initial Severity: Mild Current Severity: Moderate Location of Pain: Diffuse Character: Reports: Dull, Aching Alleviating: Reports: Spontaneous resolution Associated Signs and Symptoms: Reports: Nausea, 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 Surgical Obstruction Risk Factors: Reports: Prior abdominal surgery Related Surgical History: Reports: JIM Patient Rh Status: Unknown Abdominal Findings: Present: None Differential Diagnoses: Gastroenteritis Review of Systems - Review Of Systems Constitutional: Reports: Chills, Fever Eyes: Reports: No symptoms Ears, Nose, Mouth, Throat: Reports: No symptoms Respiratory: Reports: No symptoms Cardiac: Reports: No symptoms GI: Reports: Abdominal pain, Diarrhea, Nausea : Reports: No symptoms Musculoskeletal: Reports: No symptoms Skin: Reports: No symptoms Neurological: Reports: No symptoms Endocrine: Reports: No symptoms Hematologic/Lymphatic: Reports: No symptoms All Other Systems: Reviewed and Negative Past Medical History - Past Medical History Previously Healthy: Yes Endocrine: Reports: None Cardiovascular: Reports: None Respiratory: Reports: None Hematological: Reports: None Gastrointestinal: Reports: Pancreatitis Genitourinary: Reports: Other (Ovarian Cysts ) Neuro/Psych: Reports: Anxiety, Depression Musculoskeletal: Reports: Back Pain (CHRONIC" DEFECT ON NORCO") Cancer: Reports: None Last Menstrual Period: PT HAS HAD A HYSTERECTOMY Other Pertinent Past Medical History: TONSILECTOMY, COLONOSCOPY, BREAST AUGMENTATION, DIANOSTIC LAPEROTOMY - Surgical History General Surgical History: Reports: Hysterectomy, Tonsillectomy, Other. Denies: Appendectomy, Cholecystectomy - Family History Family History: Reports: Unknown - Social History Smoking Status: Current every day smoker Hx Substance Use: No Alcohol Screening: None Physical Exam - Physical Exam Appearance: Well-appearing, No pain distress, Well-nourished Pain Distress: Mild Eyes: ALICE, EOMI, Conjunctiva clear ENT: Ears normal, Nose normal, Oropharynx normal Neck: Supple Respiratory: Airway patent, Breath sounds clear, Breath sounds equal, Respirations nonlabored Cardiovascular: RRR, Pulses normal, No rub, No murmur GI/: Soft, No masses, Bowel sounds normal, Tender Musculoskeletal: Normal strength Skin: Warm, Dry, Normal color Neurological: Sensation intact, Motor intact, Reflexes intact, Cranial nerves intact, Alert, Oriented Psychiatric: Affect appropriate, Mood appropriate Interpretation - Radiology Interpretation Radiology Interpretation By: Radiologist Radiology Results: Negative Exam Interpreted: CT Scan Re-Evaluation - Re-Evaluation Time of Re-Evaluation: 09:56 Status: Improved Vital Signs Stable: Yes Pain Level: 1 Appearance: NAD Lungs: Clear Skin: Warm and Dry Neuro: Alert and Oriented X3 CV: RRR Critical Care Note - Critical Care Note Total Time (mins): 0 Course - Course Hematology/Chemistry: 07/01/19 07:35 07/01/19 07:35 Orders, Labs, Meds: Lab Review 07/01/19 07/01/19 07/01/19 07:30 07:35 07:35 WBC 9.93 RBC 4.16 L Hgb 12.9 Hct 37.2 MCV 89.4 MCH 31.0 MCHC 34.7 RDW Coeff of Aditi 13.6 Plt Count 256 Immature Gran % (Auto) 0.8 Neut % (Auto) 66.8 Lymph % (Auto) 26.1 [place] % (Auto) 5.3 Eos % (Auto) 0.6 Baso % (Auto) 0.4 Immature Gran # (Auto) 0.1 Neut # (Auto) 6.6 Lymph # (Auto) 2.6 [place] # (Auto) 0.5 Eos # (Auto) 0.1 Baso # (Auto) 0.0 ESR 4 Sodium 137.3 Potassium 3.10 L Chloride 101.1 Carbon Dioxide 25.2 Anion Gap 14.10 BUN 6.7 L Creatinine 0.71 Estimated GFR (MDRD) 93.00 BUN/Creatinine Ratio 9.43 Glucose 111.4 H Lactic Acid Calcium 8.94 Total Bilirubin 0.65 AST 15.1 ALT 13.0 Alkaline Phosphatase 68.4 Total Protein 6.93 Albumin 4.48 Globulin 2.45 Albumin/Globulin Ratio 1.82 Amylase 88.5 Lipase 168.8 Procalcitonin Urine Color Urine Clarity Urine pH Ur Specific [place] Urine Protein Urine Glucose (UA) Urine Ketones Urine Blood Urine Nitrite Urine Bilirubin Urine Urobilinogen Ur Leukocyte Esterase Influ A Molecular Assay Negative by naat Influ B Molecular Assay Negative by naat 07/01/19 07/01/19 07/01/19 07:35 07:35 08:40 WBC RBC Hgb Hct MCV MCH MCHC RDW Coeff of Aditi Plt Count Immature Gran % (Auto) Neut % (Auto) Lymph % (Auto) [place] % (Auto) Eos % (Auto) Baso % (Auto) Immature Gran # (Auto) Neut # (Auto) Lymph # (Auto) [place] # (Auto) Eos # (Auto) Baso # (Auto) ESR Sodium Potassium Chloride Carbon Dioxide Anion Gap BUN Creatinine Estimated GFR (MDRD) BUN/Creatinine Ratio Glucose Lactic Acid 0.98 Calcium Total Bilirubin AST ALT Alkaline Phosphatase Total Protein Albumin Globulin Albumin/Globulin Ratio Amylase Lipase Procalcitonin < 0.05 Urine Color Yellow Urine Clarity Clear Urine pH 7.0 Ur Specific [place] 1.010 Urine Protein Negative Urine Glucose (UA) Negative Urine Ketones Negative Urine Blood Negative Urine Nitrite Negative Urine Bilirubin Negative Urine Urobilinogen 0.2 Ur Leukocyte Esterase Negative Influ A Molecular Assay Influ B Molecular Assay Orders Category Date Time Status C-DIFF MONITORING (NURSING) BID CARE 07/01/19 07:16 Active ED IV/MEDIPORT/POWERPORT .ONCE EMERGENCY 07/01/19 07:15 Active AMYLASE Stat LAB 07/01/19 07:35 Completed BLOOD CULTURE (ED ONLY) Stat LAB 07/01/19 07:35 Received CBC W/ AUTO DIFF Stat LAB 07/01/19 07:35 Completed COMPREHENSIVE METABOLIC PANEL Stat LAB 07/01/19 07:35 Completed ESR Stat LAB 07/01/19 07:35 Completed FLU A/B MOLECULAR Stat LAB 07/01/19 07:30 Completed LACTIC ACID Stat LAB 07/01/19 07:35 Completed LIPASE Stat LAB 07/01/19 07:35 Completed MOLECULAR GROUP A STREP Stat LAB 07/01/19 07:30 Completed PROCALCITONIN Stat LAB 07/01/19 07:35 Completed STOOL CULTURE Stat LAB 07/01/19 Uncollected URINALYSIS C & S IF INDICATED Stat LAB 07/01/19 08:40 Completed c-diff [C. DIFFICILE] Routine LAB 07/01/19 07:16 Uncollected 0.9 % Sodium Chloride [Saline Flush] MEDS 07/01/19 07:14 Active 1 syr IVF PRN PRN Hydromorphone HCl [Dilaudid 1 mg/ml Syringe] MEDS 07/01/19 07:15 Discontinued 1 mg IVP ONCE STA Promethazine HCl [Phenergan 25 mg/ml Vial] MEDS 07/01/19 07:21 Discontinued 25 mg .ROUTE .STK-MED ONE Promethazine HCl [Phenergan 25 mg/ml Vial] 25 mg MEDS 07/01/19 07:16 Discontinued 0.9 % Sodium Chloride [Sodium Chloride] 50 ml IV ONCE Sodium Chloride 0.9% [Sodium Chloride] 1,000 ml MEDS 07/01/19 07:15 Active IV 100 mls/hr CT ABDOMEN/PELVIS WO CONTRAST Stat RADS 07/01/19 07:17 Completed Medications Generic Name Dose Route Start Last Admin Trade Name Freq PRN Reason Stop Dose Admin Sodium Chloride 1,000 mls @ 100 mls/hr 07/01/19 07:15 07/01/19 07:48 Sodium Chloride IV 07/01/19 17:14 100 mls/hr .Q10H STA Administration Sodium Chloride 1 syr 07/01/19 07:14 07/01/19 07:50 Saline Flush IVF 1 syr PRN PRN Administration To flush IV Discontinued Medications Generic Name Dose Route Start Last Admin Trade Name Freq PRN Reason Stop Dose Admin Hydromorphone HCl 1 mg 07/01/19 07:15 07/01/19 07:48 Dilaudid 1 Mg/Ml Syringe IVP 07/01/19 07:16 1 mg ONCE STA Administration Promethazine HCl 25 mg/ Sodium 51 mls @ 75 mls/hr 07/01/19 07:16 07/01/19 07: 50 Chloride IV 07/01/19 07:56 75 mls/hr ONCE STA Administration Vital Signs: Temp Pulse Resp BP Pulse Ox 07/01/19 09:35 115/80 07/01/19 08:16 98.9 F 79 16 97 07/01/19 06:56 100.2 F H 89 18 163/100 H 99 Departure - Departure Time of Disposition: 09:57 Disposition: PLACED OBSERVATION Discharge Problem: Abdominal pain Fever Qualifiers: Fever type: unspecified Qualified Code(s): R50.9 - Fever, unspecified Instructions: Acute Abdominal Pain (ED) Condition: Good Pt referred to PMD for follow-up: Yes IPMP verified?: No Allergies/Adverse Reactions: Allergies dicyclomine [From Bentyl] Adverse Reaction (Verified 07/01/19 07:02) HALLUCINATIONS PT STATES SHE IS NOT ALLERGIC TO THIS MED, SHE STATES THAT SHE HAS HAD IT AND STATES IT WORKS FOR HER, HAD HALLUCINATIONS AT ONE TIME WITH THE MonoLibreYL, NO ALLERGIC REACTIONS latex Adverse Reaction (Verified 07/01/19 07:02) Rash Home Medications: Ambulatory Orders Sucralfate [Carafate] 1 gm PO TID #20 tablet 05/21/19 Metoclopramide HCl [Reglan] 10 mg PO ACHS #20 tablet 06/24/19 Sulfamethoxazole/Trimethoprim [Bactrim Ds 800/160 mg] 1 tab PO Q12HR #7 tablet 06/29/19 Lorazepam [Ativan] 1 mg PO TID 06/30/19 Tizanidine HCl [Zanaflex] 4 mg PO TID PRN 06/30/19 Trazodone HCl 150 mg PO DAILY 06/30/19 Ketorolac Tromethamine [Toradol] 10 mg PO Q6HR PRN 07/01/19 Ondansetron [Zofran Odt] 4 mg PO Q8H PRN 07/01/19 Transfer Form Completed: No Disposition Discussed With: Patient
[2019-07-01] MEDS ORDERED: NON-FORMULARY MEDICATION (Tizanidine Hcl [Zanaflex] 4 MG) PO PRN (09:59)
[2019-07-01] MEDS ORDERED: NON-FORMULARY MEDICATION (Trazodone Hcl [Trazodone Hcl] 150 MG) PO SCH (10:00)
[2019-07-01] MEDS ORDERED: K-DUR PO STA (10:01)
[2019-07-01] MEDS: NORCO 7.5-325 PO PRN ×3 (10:33→21:02)
[2019-07-01] MEDS: CARAFATE PO SCH ×2 (10:33→17:02)
[2019-07-01] MEDS: ATIVAN PO SCH ×3 (10:34→21:01)
[2019-07-01] MEDS: ZANAFLEX PO PRN ×2 (10:34→21:07)
[2019-07-01] MEDS ORDERED: DESYREL PO SCH (21:00)
[2019-07-02 04:55] VITALS: BP 100/60; TEMP 98.3
[2019-07-02] MEDS: NORCO 7.5-325 PO PRN (05:31)
[2019-07-02] MEDS: CARAFATE PO SCH (05:31)
--- NOTE | 2019-07-05 13:41 | SSS ---
PRINCIPAL DIAGNOSIS: 1. Abdominal pain 2. Fever 3. Diarrhea DISCUSSION: This is a 39 year old lady who presented to the emergency department with recurrent lower abdominal pain as well as nonbloody diarrhea and she also had a fever of less than 101. She has been seen in the emergency department approximately 3-4 times in the past week. Her pain has become more severe. She also was a Pain Management patient and has an appointment in three days. She also has an appointment with her wall taper helper tomorrow because of her fever and diarrhea we decided to admit her to observation to get a better idea about her fever as well as loose stools. 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 SOCIAL HISTORY: She is single. She is a one pack per day smoker. Denies any current of illicit drug abuse. FAMILY HISTORY: Reviewed and thought not to be pertinent to discussion. REVIEW OF SYSTEMS: No headaches, visual changes, tinnitus, hemoptysis, blood in the stool, urinary symptoms or seizures. PHYSICAL EXAMINATION: VITAL SIGNS: Temperature 100.5, pulse 89, respirations 18 and blood pressure 163 /100. HEENT: Pupils are round. NECK: Supple. CHEST: Clear. CARDIOVASCULAR: Regular rate and rhythm. ABDOMEN: Soft, nontender. EXTREMITIES: Distal extremities without cyanosis or edema. CLINICAL COURSE: The patient was admitted to observation over night and she defervesced. She had no further fever. She also had no further diarrhea and so at this point the patient was discharged and she will follow up with her Lead Pourer after discharged. She will also followup with Pain Management in two days. YARIEL
== END 2019-07-02 07:05 | disposition home or self-care (01) ==
LOC: ED 06:54 → MEDSURG B 10:00 → UNDOADMOB 10:00 → MEDSURG B 10:10
PROVIDERS: ADMIT Family Medicine; ATTEND Family Medicine
DX: R10.9 Unspecified abdominal pain (principal); R19.7 Diarrhea, unspecified; R50.9 Fever, unspecified
CPT/HCPCS: 36415; 80053; 81001; 82150; 83605; 83690; 84145; 85025; 85651; 87040; 87502; 87651; 96360; 96361; 96365; 96375; 99284

== ENCOUNTER 2019-07-04 14:20 | Emergency (ER) ==
[2019-07-04 14:24] VITALS: BP 137/70; TEMP 98; BMI 18.6
[2019-07-04] MEDS ORDERED: TORADOL IM STA (15:41)
--- NOTE | 2019-07-04 18:40 | ED.PDOC ---
General ED Provider: Dr. JOSHUA DENIS Chief Complaint: Nausea/Vomiting Stated Complaint: abdominal pain chronic nor improved Time Seen by Physician: 14:20 (seen with GIOVANA AT ALL TIMES ) Mode of Arrival: Walk-In Information Source: Patient Exam Limitations: No limitations Primary Care Provider: PEPE MA Nursing and Triage Documentation Reviewed and Agree: Yes Does patient meet sepsis criteria?: No System Inflammatory Response Syndrome: Not Applicable Sepsis Protocol: For patient's 13 years and over: Temp is 96.8 and below OR 101 and greater Pulse >90 BPM Resp >20/minute Acutely Altered Mental Status Are patient's symptoms suggestive of a new infection, such as: -Pneumonia -Skin, Soft Tissue -Endocarditis -UTI -Bone, Joint Infection -Implantable Device -Acute Abdominal Infection -Wound Infection -Meningitis -Blood Stream Catheter Infection -Unknown GI Complaint Exam - Abdominal Pain Complaint/Exam Onset: Gradual Duration: CHRONIC ISSUE ABOUT 10 PRIOR VISITS THIS MONTH FOR THE SAME PAIN TODAY. Symptoms Are: Still present Timing: Constant Initial Severity: Mild Current Severity: Mild Location of Pain: Diffuse Character: Reports: Aching, Cramping Aggravating: Reports: None Alleviating: Reports: None Associated Signs and Symptoms: Denies: Diaphoresis, Fever, Cough, Chest pain, Dizziness, Back pain, Constipation, Blood in stool, Dysuria, Urinary frequency, Decreased urine output, Decreased appetite, Vaginal bleeding, Vaginal discharge , Nausea, Vomiting, Diarrhea, Sore throat, Decreased activity Related History: Reports: Similar episode AAA Risk Factors: Reports: None Cardiac Risk Factors: Reports: None Ectopic Risk Factors: Reports: Maternal age >30 Ovarian Torsion Risk Factors: Reports: None Surgical Obstruction Risk Factors: Reports: None Related Surgical History: Reports: None Patient Rh Status: Unknown Abdominal Findings: Present: None Differential Diagnoses: Appendicitis, Bowel Obstruction, Constipation, Diverticulitis, Gastroenteritis, Pancreatitis, Irritable Bowel Syndrome, Renal Colic, Ureteral Stone, Ovarian Cyst Review of Systems - Review Of Systems Constitutional: Reports: No symptoms Eyes: Reports: No symptoms Ears, Nose, Mouth, Throat: Reports: No symptoms Respiratory: Reports: No symptoms Cardiac: Reports: No symptoms GI: Reports: Abdominal pain : Reports: No symptoms Musculoskeletal: Reports: No symptoms Skin: Reports: No symptoms Neurological: Reports: No symptoms Endocrine: Reports: No symptoms Hematologic/Lymphatic: Reports: No symptoms All Other Systems: Reviewed and Negative Past Medical History - Past Medical History Previously Healthy: Yes Endocrine: Reports: None Cardiovascular: Reports: None Respiratory: Reports: None Hematological: Reports: None Gastrointestinal: Reports: Pancreatitis Genitourinary: Reports: Other (Ovarian Cysts ) Neuro/Psych: Reports: Anxiety, Depression Musculoskeletal: Reports: Back Pain (CHRONIC" DEFECT ON NORCO") Cancer: Reports: None Last Menstrual Period: N/A Other Pertinent Past Medical History: TONSILECTOMY, COLONOSCOPY, BREAST AUGMENTATION, DIANOSTIC LAPEROTOMY - Surgical History General Surgical History: Reports: Hysterectomy, Tonsillectomy, Other. Denies: Appendectomy, Cholecystectomy - Family History Family History: Reports: Unknown - Social History Smoking Status: Current every day smoker, Light tobacco smoker Hx Substance Use: No Alcohol Screening: None Physical Exam - Physical Exam Appearance: Well-appearing, No pain distress, Well-nourished Eyes: ALICE, EOMI, Conjunctiva clear ENT: Ears normal, Nose normal, Oropharynx normal Respiratory: Airway patent, Breath sounds clear, Breath sounds equal, Respirations nonlabored Cardiovascular: RRR, Pulses normal, No rub, No murmur GI/: Soft, Nontender, No masses, Bowel sounds normal, No Organomegaly Musculoskeletal: Normal strength, ROM intact, No edema, No calf tenderness Skin: Warm, Dry, Normal color Neurological: Sensation intact, Motor intact, Reflexes intact, Cranial nerves intact, Alert, Oriented Psychiatric: Affect appropriate, Mood appropriate Critical Care Note - Critical Care Note Total Time (mins): 0 Course - Course Hematology/Chemistry: 07/04/19 15:54 07/04/19 15:54 Orders, Labs, Meds: Lab Review 07/04/19 07/04/19 15:54 15:54 WBC 11.24 H RBC 4.50 Hgb 13.7 Hct 40.4 MCV 89.8 MCH 30.4 MCHC 33.9 RDW Coeff of Aditi 14.0 Plt Count 244 Immature Gran % (Auto) 0.6 Neut % (Auto) 70.0 Lymph % (Auto) 21.6 [place] % (Auto) 7.1 Eos % (Auto) 0.4 Baso % (Auto) 0.3 Immature Gran # (Auto) 0.1 Neut # (Auto) 7.9 H Lymph # (Auto) 2.4 [place] # (Auto) 0.8 Eos # (Auto) 0.0 Baso # (Auto) 0.0 Sodium 136.4 Potassium 4.00 Chloride 97.9 L Carbon Dioxide 28.7 Anion Gap 13.80 BUN 7.5 Creatinine 0.63 Estimated GFR (MDRD) 106.00 BUN/Creatinine Ratio 11.90 Glucose 107.2 H Calcium 9.48 Total Bilirubin 0.82 AST 25.6 ALT 15.1 Alkaline Phosphatase 71.5 Total Protein 7.36 Albumin 4.73 Globulin 2.63 Albumin/Globulin Ratio 1.79 Amylase 84.4 Lipase 72.3 Orders Category Date Time Status NPO REMINDER: IMAGING ONCE CARE 07/04/19 15:40 Ordered AMYLASE Stat LAB 07/04/19 15:40 Ordered CBC W/ AUTO DIFF Stat LAB 07/04/19 15:40 Ordered COMPREHENSIVE METABOLIC PANEL Stat LAB 07/04/19 15:40 Ordered LIPASE Stat LAB 07/04/19 15:40 Ordered Ketorolac Tromethamine [Toradol] MEDS 07/04/19 15:41 Stat 60 mg IM ONCE STA Medications Discontinued Medications Generic Name Dose Route Start Last Admin Trade Name Heather PRN Reason Stop Dose Admin Ketorolac Tromethamine 60 mg 07/04/19 15:41 07/04/19 16:07 Toradol IM 07/04/19 15:42 Not Given ONCE STA Vital Signs: Temp Pulse Resp BP Pulse Ox 07/04/19 14:20 98.0 F 117 H 18 137/70 98 Departure - Departure Time of Disposition: 18:41 (PT UNHAPPY WITH CARE . SHE WAS TOLD SHE WILL RECIVE A FULL WORK UP AND NO NARCOTIC PAIN MEDS UNTIL C.T. REPORTS OBTAINED. PT SHORTLY LATER STORMED OUT REFUSED TO HAVE TETSTING DONE ) Disposition: AMA Discharge Problem: Abdominal pain Condition: Good Pt referred to PMD for follow-up: No IPMP verified?: No Additional Instructions: Please call your Family Physician as soon as possible to schedule a follow-up appointment. Allergies/Adverse Reactions: Allergies dicyclomine [From Bentyl] Adverse Reaction (Verified 07/04/19 15:08) HALLUCINATIONS PT STATES SHE IS NOT ALLERGIC TO THIS MED, SHE STATES THAT SHE HAS HAD IT AND STATES IT WORKS FOR HER, HAD HALLUCINATIONS AT ONE TIME WITH THE BENTYL, NO ALLERGIC REACTIONS latex Adverse Reaction (Verified 07/04/19 15:08) Rash Home Medications: Ambulatory Orders Sucralfate [Carafate] 1 gm PO TID #20 tablet 05/21/19 Metoclopramide HCl [Reglan] 10 mg PO ACHS #20 tablet 06/24/19 Sulfamethoxazole/Trimethoprim [Bactrim Ds 800/160 mg] 1 tab PO Q12HR #7 tablet 06/29/19 Lorazepam [Ativan] 1 mg PO TID 06/30/19 Tizanidine HCl [Zanaflex] 4 mg PO TID PRN 06/30/19 Trazodone HCl 150 mg PO DAILY 06/30/19 Ketorolac Tromethamine [Toradol] 10 mg PO Q6HR PRN 07/01/19 Ondansetron [Zofran Odt] 4 mg PO Q8H PRN 07/01/19 Hydrocodone Bit/Acetaminophen [Candor 7.5-325] 7.5 - 325 mg PO Q8H PRN 07/03/19
== END 2019-07-04 15:59 | disposition left against medical advice (07) ==
LOC: ED 14:20
DX: R10.9 Unspecified abdominal pain (principal); G89.29 Other chronic pain; R11.2 Nausea with vomiting, unspecified; F17.210 Nicotine dependence, cigarettes, uncomplicated; Z79.899 Other long term (current) drug therapy
CPT/HCPCS: 36415; 80053; 82150; 83690; 85025; 99284

== ENCOUNTER 2019-11-27 22:37 | Observation (INO) ==
[2019-11-27 23:29] LABS: HEMATOCRIT 35.3 % (37.0-47.0)
[2019-11-27] MEDS ORDERED: PHENERGAN 25 MG/ML VIAL 25 MG in SODIUM CHLORIDE 50 ML IV STA (23:40)
[2019-11-27] MEDS ORDERED: SODIUM CHLORIDE 1,000 ML IV STA (23:40)
[2019-11-27] MEDS ORDERED: STADOL IVP STA (23:40)
--- NOTE | 2019-11-27 23:40 | ED.PDOC ---
General ED Provider: Dr. PEPE MA-ER Chief Complaint: Abdominal Pain Stated Complaint: edin been vomiting all day Time Seen by Physician: 01:21 Mode of Arrival: Walk-In Information Source: Patient Primary Care Provider: PEPE MA Nursing and Triage Documentation Reviewed and Agree: Yes Does patient meet sepsis criteria?: No System Inflammatory Response Syndrome: Not Applicable Sepsis Protocol: For patient's 13 years and over: Temp is 96.8 and below OR 101 and greater Pulse >90 BPM Resp >20/minute Acutely Altered Mental Status Are patient's symptoms suggestive of a new infection, such as: -Pneumonia -Skin, Soft Tissue -Endocarditis -UTI -Bone, Joint Infection -Implantable Device -Acute Abdominal Infection -Wound Infection -Meningitis -Blood Stream Catheter Infection -Unknown GI Complaint Exam Vomiting/Diarrhea Complaint/Exam Onset/Duration: 24 hrs Symptoms Are: Still present Initial Severity: Mild Current Severity: Moderate Character of Vomiting: Reports Non-bilious Aggravating: Reports None Associated Signs and Symptoms: Reports Abdominal pain and Cramping Related History: Reports Similar episode Related Surgical History: Reports Cholecystectomy Abdominal Findings: Present None Kussmaul Respirations Present: No Differential Diagnoses: Gastritis and Viral Gastroenteritis Review of Systems Review Of Systems Constitutional: Reports No symptoms Eyes: Reports No symptoms Ears, Nose, Mouth, Throat: Reports No symptoms Respiratory: Reports No symptoms Cardiac: Reports No symptoms GI: Reports Abdominal pain, Nausea, Poor appetite and Vomiting : Reports No symptoms Musculoskeletal: Reports No symptoms Skin: Reports No symptoms Neurological: Reports No symptoms Endocrine: Reports No symptoms Hematologic/Lymphatic: Reports No symptoms All Other Systems: Reviewed and Negative [facility] Social History (Updated 11/28/19 @ 00:50 by NICOLASA COLEMAN LPN) Smoking and tobacco status: Current every day smoker Tobacco type: cigarettes Tobacco: How many years used: 15 Substance use type: does not use History of recent travel: No Female Reproductive History Menstrual Hx Hysterectomy: Yes Hx Tubal Ligation: Yes Physical Exam Physical Exam Appearance: Well-appearing Ill-appearing: Mild Pain Distress: Moderate Eyes: ALICE, EOMI and Conjunctiva clear ENT: Ears normal and Nose normal Neck: Supple Respiratory: Airway patent, Breath sounds clear and Breath sounds equal Cardiovascular: RRR, Pulses normal and No rub GI/: Soft and Nontender Musculoskeletal: Normal strength Skin: Warm and Dry Neurological: Sensation intact, Motor intact, Reflexes intact, Cranial nerves intact, Alert and Oriented Psychiatric: Affect appropriate, Mood appropriate and Anxious Interpretation Radiology Interpretation Radiology Interpretation By: Radiologist Radiology Results: Negative Critical Care Note Critical Care Note Total Time (mins): 0 Course Course Hematology/Chemistry: 11/27/19 23:28 11/27/19 23:28 Orders, Labs, Meds: Lab Review 11/27/19 11/27/19 11/27/19 22:50 23:28 23:28 WBC 11.26 H RBC 4.04 L Hgb 12.2 Hct 35.3 L MCV 87.4 MCH 30.2 MCHC 34.6 RDW Coeff of Aditi 13.5 Plt Count 190 Immature Gran % (Auto) 0.4 Neut % (Auto) 84.8 H Lymph % (Auto) 10.8 [place] % (Auto) 3.9 Eos % (Auto) 0.0 Baso % (Auto) 0.1 Immature Gran # (Auto) 0.1 Neut # (Auto) 9.5 H Lymph # (Auto) 1.2 [place] # (Auto) 0.4 Eos # (Auto) 0.0 Baso # (Auto) 0.0 Sodium 135.6 Potassium 3.79 Chloride 107.6 H Carbon Dioxide 19.9 L Anion Gap 11.89 BUN 6.5 L Creatinine 0.49 L Estimated GFR (MDRD) 142.00 BUN/Creatinine Ratio 13.26 Glucose 128.7 H Calcium 9.14 Total Bilirubin 0.79 AST 25.1 ALT 12.5 Alkaline Phosphatase 74.2 Total Creatine Kinase 42.2 Troponin I < 0.012 Total Protein 7.21 Albumin 4.39 Globulin 2.82 Albumin/Globulin Ratio 1.55 Amylase 78.0 D Lipase 32.4 Urine Color Yellow Urine Clarity Slightly Urine pH 6.5 Ur Specific [place] >=1.030 Urine Protein Negative Urine Glucose (UA) Negative Urine Ketones 1+ Urine Blood Trace-intact Urine Nitrite Negative Urine Bilirubin Negative Urine Urobilinogen 0.2 Ur Leukocyte Esterase Negative Urine Microscopic RBC 0-2 Ur Squamous Epith Cells 10-20 Amorphous Sediment Trace Orders Category Date Time Status EKG-(ED ONLY) Stat CARDIO 11/27/19 22:51 Completed AMYLASE Stat LAB 11/27/19 23:28 Completed CBC W/ AUTO DIFF Stat LAB 11/27/19 23:28 Completed COMPREHENSIVE METABOLIC PANEL Stat LAB 11/27/19 23:28 Completed CREATINE KINASE Stat LAB 11/27/19 23:28 Completed LIPASE Stat LAB 11/27/19 23:28 Completed TROPONIN I Stat LAB 11/27/19 23:28 Completed URINALYSIS C & S IF INDICATED Stat LAB 11/27/19 22:50 Completed Butorphanol Tartrate [Stadol] MEDS 11/27/19 23:40 Discontinued 2 mg IVP ONCE STA Hydromorphone HCl [Dilaudid 1 mg/ml Syringe] MEDS 11/28/19 01:00 Discontinued 0.5 mg IVP ONCE STA Hydromorphone HCl [Dilaudid 1 mg/ml Syringe] MEDS 11/28/19 00:42 Discontinued 1 mg .ROUTE .STK-MED ONE Ondansetron HCl/Pf [Zofran 4 mg/2 ml] MEDS 11/28/19 00:42 Discontinued 4 mg .ROUTE .STK-MED ONE Ondansetron HCl/Pf [Zofran 4 mg/2 ml] MEDS 11/28/19 01:00 Discontinued 4 mg IVP ONCE STA Promethazine HCl [Phenergan 25 mg/ml Vial] MEDS 11/27/19 23:46 Discontinued 25 mg .ROUTE .STK-MED ONE Promethazine HCl [Phenergan 25 mg/ml Vial] 25 mg MEDS 11/27/19 23:40 Discontinued 0.9 % Sodium Chloride [Sodium Chloride] 50 ml IV ONCE Sodium Chloride 0.9% [Sodium Chloride] 1,000 ml MEDS 11/27/19 23:40 Active IV 100 mls/hr ABDOMEN, SERIES FLAT & UPRIGHT Stat RADS 11/27/19 22:53 Completed Medications Generic Name Dose Route Start Last Admin Trade Name Freq PRN Reason Stop Dose Admin Sodium Chloride 1,000 mls @ 100 mls/hr 11/27/19 23:40 11/27/19 23:53 Sodium Chloride IV 11/28/19 09:39 100 mls/hr .Q10H STA Administration Discontinued Medications Generic Name Dose Route Start Last Admin Trade Name Freq PRN Reason Stop Dose Admin Butorphanol Tartrate 2 mg 11/27/19 23:40 11/27/19 23:53 Stadol IVP 11/27/19 23:41 2 mg ONCE STA Administration Hydromorphone HCl 0.5 mg 11/28/19 01:00 01/08/20 01:02 Dilaudid 1 Mg/Ml Syringe IVP 11/28/19 01:01 0.5 mg ONCE STA Administration Promethazine HCl 25 mg/ Sodium 51 mls @ 75 mls/hr 11/27/19 23:40 11/27/19 23: 51 Chloride IV 11/28/19 00:20 75 mls/hr ONCE STA Administration Ondansetron HCl 4 mg 11/28/19 01:00 11/28/19 01:02 Zofran 4 Mg/2 Ml IVP 11/28/19 01:01 4 mg ONCE STA Administration Vital Signs: Temp Pulse Resp BP Pulse Ox 11/27/19 22:37 99.3 F 78 16 129/82 98 Discharge Plan Discharge Patient Disposition: ADMITTED INPATIENT Discharge Problem: Abdominal pain Prescriptions: No Action quetiapine [Seroquel] 50 mg Tablet 50 mg PO BEDTIME RF: 0 clonazepam [Klonopin] 0.5 mg Tablet 0.5 mg PO BID RF: 0 tramadol 50 MG tablet 50 mg PO QID PRN (Reason: Abdominal Pain) Qty: 20 RF: 0 ondansetron [ondansetron] 4 MG tablet,disintegrating 4 mg PO Q8H PRN (Reason: Nausea/VOMITING) RF: 0 trazodone 150 MG tablet 150 mg PO DAILY RF: 0 ED Provider: PEPE PUENTES Condition: Good
[2019-11-27] MEDS ORDERED: PHENERGAN 25 MG/ML VIAL ONE (23:46)
--- NOTE | 2019-11-27 23:48 | DI ---
EXAM: Acute abdominal series. HISTORY: Abdominal pain. FINDINGS: There is a normal bowel gas pattern. No evidence of bowel obstruction or free intraperiton eal air. The bones are unremarkable. Impression: Negative acute abdominal series as described.
[2019-11-28] MEDS ORDERED: DILAUDID 1 MG/ML SYRINGE ONE ×2 (00:42→01:58)
[2019-11-28] MEDS ORDERED: ZOFRAN 4 MG/2 ML ONE (00:42)
[2019-11-28] MEDS ORDERED: ZOFRAN 4 MG/2 ML IVP STA (01:00)
[2019-11-28] MEDS ORDERED: DILAUDID 1 MG/ML SYRINGE IVP STA ×2 (01:00→02:15)
[2019-11-28] MEDS ORDERED: PHENERGAN 25 MG/ML VIAL 25 MG in SODIUM CHLORIDE 50 ML IV PRN (02:27)
[2019-11-28] MEDS ORDERED: ZOFRAN 4 MG/2 ML IVP PRN (02:27)
[2019-11-28 02:57] VITALS: BMI 19.8
[2019-11-28] MEDS ORDERED: POTASSIUM CHLORIDE 10 MEQ VIAL- ADDITIVE ONLY IV ONE (03:19)
[2019-11-28] MEDS ORDERED: [UNRECOGNIZED DRUG - MIXTURE] IV SCH (03:30)
[2019-11-28 04:41] LABS: HEMATOCRIT 39.5 % (37.0-47.0)
[2019-11-28] MEDS: DILAUDID 1 MG/ML SYRINGE IVP PRN ×2 (06:01→10:18)
--- NOTE | 2019-11-28 07:03 | PCM ---
Chief Complaint Chief Complaint: c/o's of vomiting History of Present Illness History of Present Illness: Sherry Salazar is a 39 yo female who presented early 11/27/2016 to [facility] ER and late evening to [facility] ER for vomiting. The patient left each ER refusing admission because of a court date concerning child custody issues. However, she returned ambulatory to [facility] ER around 1 AM today 11/28/2016 w/ same complaints. She notes issues with vomiting for the last 24 hours of non-bilous emesis. There has been associated generalized abdominal cramping/discomfort occuring after several episodes of vomiting, LGF at home, generalized dull headache, fatigue, mild weakness, and decreased appetite. Denies chills, diaphoresis, ear pain, dizziness, ST, URI symptoms, cough, SOB, CP, palpitations, orthopnea, hematemesis, hematachezia, melena, dysuria, foul urine odor, flank pain, rashes, or other symptoms. See ROS. She has hx of partial Hyst & Cholecystectomy. Denies IBS, Crohn's disease, or other health problems. Patient is improving and has court date today; would like to leave early afternoon as her symptoms are improving. Will evaluate later this afternoon. Patient inpatient admission by ER MD changed to Obs status as per [employer], request due to protocol guidelines. Review of Systems Constitutional: fever, weakness, fatigue and loss of appetite Eyes: No blurred vision, double-vision, discharge, pain and redness Ears: No pain, drainage and hearing loss Nose: No bleeding, congestion and discharge Throat: No pain and swelling Mouth: No pain and swelling Respiratory: No cough, shortness of air, wheeze, hemoptysis and pain with breathing Cardiovascular: No chest pain, left arm pain, diaphoresis, orthopnea, edema, palpitations and syncope Gastrointestinal: abdominal pain, nausea and vomiting; No diarrhea, melena, hematemesis, hematochezia, dysphagia and constipation Genitourinary: No dysuria, hematuria, frequency, flank pain, vaginal discharge and pelvic pain Last Menstrual Cycle: s/p Partial Hyst Neurological: headache and weakness; No dizziness, seizure, numbness, speech difficulty, problems with walking, tremor and fainting Musculoskeletal: No pain and swelling in joints Skin: No rash, wounds and bruising Psychiatric: depression and anxiety; No sleeplessness, hopelessness, suicidal and hallucinations Habits: tobacco use and substance use (2017 OD Klonopin; [facility] just put her pack on Klonopin 0.5mg last week--says "I was cleared to use it again." ) Past Medical History Medical History (Updated 11/29/19 @ 22:58 by MARLON CORNELL) Depression with anxiety (Inactive) Drug overdose (Inactive) History of nausea and vomiting (Acute) Past Surgical History Surgical History (Updated 11/29/19 @ 22:58 by MARLON CORNELL) History of partial hysterectomy (Acute ~06/2017) Hx laparoscopic cholecystectomy (Acute) Allergies Allergies Allergy/AdvReac Type Severity Reaction Status Date / Time dicyclomine [From Bentyl] AdvReac HALLUCINATI Verified 11/28/19 23:19 ONS latex AdvReac Rash Verified 11/28/19 23:19 Medications Medications: Medications Generic Name Dose Route Start Last Admin Trade Name Freq PRN Reason Stop Dose Admin Clonazepam 0.5 mg 11/28/19 09:00 Klonopin PO BID GAVIN Famotidine 20 mg 11/28/19 09:00 Pepcid IVP Q12HR GAVIN Hydromorphone HCl 1 mg 11/28/19 02:27 11/28/19 06:01 Dilaudid 1 Mg/Ml Syringe IVP 1 mg Q4HR PRN Administration Abdominal Pain Sodium Chloride 1,000 mls @ 100 mls/hr 11/27/19 23:40 11/27/19 23:53 Sodium Chloride IV 11/28/19 09:39 100 mls/hr .Q10H STA Administration Promethazine HCl 25 mg/ Sodium 51 mls @ 75 mls/hr 11/28/19 02:27 Chloride IV Q6H PRN Nausea / Vomiting Potassium Chloride 10 meq/ 1,005 mls @ 125 mls/hr 11/28/19 03:30 11/28/19 03:25 Dextrose/Sodium Chloride IV 125 mls/hr .Q8H3M GAVIN Administration Ondansetron HCl 4 mg 11/28/19 02:27 11/28/19 06:01 Zofran 4 Mg/2 Ml IVP 4 mg Q6H PRN Administration Nausea / Vomiting Quetiapine Fumarate 50 mg 11/28/19 21:00 Seroquel PO BEDTIME GAVIN Trazodone HCl 150 mg 11/28/19 09:00 Desyrel PO DAILY GAVIN Family History Family History Mother No problems noted. Father No problems noted. MATERNAL GRANDMOTHER No problems noted. Social History Social History Smoking and tobacco status: Current every day smoker Tobacco type: cigarettes Tobacco: How many years used: 15 Substance use type: does not use, former substance user Date of last use: 2016 per pt. report. and painkillers Counseling given: Yes Counseling provided: other Details: Seen at [facility] weekly per pt. report. Household members: friend(s) Marital status: D Lives independently: Yes History of recent travel: No Current gender identity: female Body Composition Height: 5 ft 5.5 in Weight: 120 lb 9.486 oz Body Mass Index (BMI): 19.8 Physical Examination Head: Normocephalic; No tenderness on palpation; No signs of trauma/injury. Ears: Ear canals clear; no wax or d/c.; no inflammation. Bilateral TM's intact w/ landmarks present; no fluid, bulging or erythema. Hearing WNL. Eyes: PERRLA. No erythema, swelling or d/c. Vision grossly intact. Nose: Nares clear w/ pink moist mucosa. No bleeding, swelling, lesions, or d/c. Throat: Pharynx slightly injected w/ cobblestoning. Tonsils WNL. No lesions or PND. Mouth: Oral mucosa pink and moist. No lesions or dental carries. Neurological: A/O X 3 Gait steady w/ 1 assist. Sensation intact. No tremors. Neck: Neck supple w/o tenderness to palpation. No lymphadenopathy. FROM w/o pain. Chest: NT to palpation. No abnormal M/S findings. Lungs: CTA. No rales, rhonchi, or wheezes. No retractions. Respirations easy and regular on RA. Heart: RRR. No murmurs, gallops, or abnormal heart sounds. PPP 2+/4+ =. No peripheral edema notes. Abdomen: Soft, , No masses or organomegaly. Normal GILL/SO X4. Upper Extremities: M/S : GREENE well w/o pain or limitation ROM. All joints w/o redness, swelling or tenderness on palpation. Spine w/o scoliosis or deformity; paravetebral muscles NT and w/o spasm. Lab/Tests/Diagnostic Imaging Lab/Tests/Diagnostic Imaging: Lab Review 11/27/19 11/27/19 11/27/19 22:50 23:28 23:28 WBC 11.26 H RBC 4.04 L Hgb 12.2 Hct 35.3 L MCV 87.4 MCH 30.2 MCHC 34.6 RDW Coeff of Aditi 13.5 Plt Count 190 Immature Gran % (Auto) 0.4 Neut % (Auto) 84.8 H Lymph % (Auto) 10.8 [place] % (Auto) 3.9 Eos % (Auto) 0.0 Baso % (Auto) 0.1 Immature Gran # (Auto) 0.1 Neut # (Auto) 9.5 H Lymph # (Auto) 1.2 [place] # (Auto) 0.4 Eos # (Auto) 0.0 Baso # (Auto) 0.0 Sodium 135.6 Potassium 3.79 Chloride 107.6 H Carbon Dioxide 19.9 L Anion Gap 11.89 BUN 6.5 L Creatinine 0.49 L Estimated GFR (MDRD) 142.00 BUN/Creatinine Ratio 13.26 Glucose 128.7 H Calcium 9.14 Total Bilirubin 0.79 AST 25.1 ALT 12.5 Alkaline Phosphatase 74.2 Total Creatine Kinase 42.2 Troponin I < 0.012 Total Protein 7.21 Albumin 4.39 Globulin 2.82 Albumin/Globulin Ratio 1.55 Amylase 78.0 D Lipase 32.4 Urine Color Yellow Urine Clarity Slightly Urine pH 6.5 Ur Specific [place] >=1.030 Urine Protein Negative Urine Glucose (UA) Negative Urine Ketones 1+ Urine Blood Trace-intact Urine Nitrite Negative Urine Bilirubin Negative Urine Urobilinogen 0.2 Ur Leukocyte Esterase Negative Urine Microscopic RBC 0-2 Ur Squamous Epith Cells 10-20 Amorphous Sediment Trace 11/28/19 11/28/19 04:20 04:20 WBC 11.76 H RBC 4.40 Hgb 13.1 Hct 39.5 MCV 89.8 MCH 29.8 MCHC 33.2 RDW Coeff of Aditi 13.7 Plt Count 211 Immature Gran % (Auto) 0.6 Neut % (Auto) 79.3 H Lymph % (Auto) 14.0 [place] % (Auto) 5.8 Eos % (Auto) 0.1 Baso % (Auto) 0.2 Immature Gran # (Auto) 0.1 Neut # (Auto) 9.3 H Lymph # (Auto) 1.7 [place] # (Auto) 0.7 Eos # (Auto) 0.0 Baso # (Auto) 0.0 Sodium 139.6 Potassium 3.97 Chloride 108.0 H Carbon Dioxide 25.5 Anion Gap 10.07 BUN 6.4 L Creatinine 0.57 L Estimated GFR (MDRD) 119.00 BUN/Creatinine Ratio 11.22 Glucose 118.6 H Calcium 9.13 Total Bilirubin 0.82 AST 18.6 ALT 12.9 Alkaline Phosphatase 70.4 Total Creatine Kinase Troponin I Total Protein 7.23 Albumin 4.43 Globulin 2.80 Albumin/Globulin Ratio 1.58 Amylase 74.6 Lipase 28.8 Urine Color Urine Clarity Urine pH Ur Specific [place] Urine Protein Urine Glucose (UA) Urine Ketones Urine Blood Urine Nitrite Urine Bilirubin Urine Urobilinogen Ur Leukocyte Esterase Urine Microscopic RBC Ur Squamous Epith Cells Amorphous Sediment Radiology new w/ comparison to old test results. 11/27/2019 22:53 Flat Plate & Uprights of Abdomen Imp: No acute abnormality seen in abdomen or pelvis. Findings compared w/ same test done 09/07/2019 indicating "No acute findings in Abdomen or pelvis; Chronic bilateral L5 pars defects. Vital Signs Temp Pulse Resp BP Pulse Ox 11/28/19 09:47 99.0 F 61 18 128/70 100 11/28/19 05:22 98.6 F 73 16 125/64 96 11/28/19 02:53 97.8 F 54 L 18 99 11/27/19 22:37 99.3 F 78 16 129/82 98 Orders Category Date Time Status ADMIT PATIENT INPATIENT .TO [facility] (NON-MONITORED ADMISSION 11/28/19 03:04 Active BED) EKG-(ED ONLY) Stat CARDIO 11/27/19 22:51 Completed VITAL SIGNS Q4HR CARE 11/28/19 02:26 Active CLEAR LIQUID DIET DIETARY 11/28/19 Breakfast Ordered AMYLASE DAILY@0600 LAB 11/28/19 04:20 Completed AMYLASE DAILY@0600 LAB 11/29/19 06:00 Ordered AMYLASE Stat LAB 11/27/19 23:28 Completed CBC W/ AUTO DIFF DAILY@0600 LAB 01/08/20 04:20 Completed CBC W/ AUTO DIFF DAILY@0600 LAB 11/29/19 06:00 Ordered CBC W/ AUTO DIFF Stat LAB 11/27/19 23:28 Completed CMP [COMPREHENSIVE METABOLIC PANEL] DAILY@0600 LAB 11/28/19 04:20 Completed CMP [COMPREHENSIVE METABOLIC PANEL] DAILY@0600 LAB 11/29/19 06:00 Ordered COMPREHENSIVE METABOLIC PANEL Stat LAB 11/27/19 23:28 Completed CREATINE KINASE Stat LAB 11/27/19 23:28 Completed LIPASE DAILY@0600 LAB 11/28/19 04:20 Completed LIPASE DAILY@0600 LAB 11/29/19 06:00 Ordered LIPASE Stat LAB 11/27/19 23:28 Completed TROPONIN I Stat LAB 11/27/19 23:28 Completed URINALYSIS C & S IF INDICATED Stat LAB 11/27/19 22:50 Completed Butorphanol Tartrate [Stadol] MEDS 11/27/19 23:40 Discontinued 2 mg IVP ONCE STA Clonazepam [Klonopin] MEDS 11/28/19 09:00 Active 0.5 mg PO BID Dextrose 5 % and 0.9 % NaCl [Dextrose 5%-Ns IV Solution MEDS 11/28/19 03:30 Active ] 1,000 ml Potassium Chloride Additive [Potassium Chloride 10 Meq Vial- Additive Only] 10 meq IV 125 mls/hr Famotidine Inj [Pepcid] MEDS 11/28/19 09:00 Active 20 mg IVP Q12HR Hydromorphone HCl [Dilaudid 1 mg/ml Syringe] MEDS 11/28/19 01:00 Discontinued 0.5 mg IVP ONCE STA Hydromorphone HCl [Dilaudid 1 mg/ml Syringe] MEDS 11/28/19 00:42 Discontinued 1 mg .ROUTE .STK-MED ONE Hydromorphone HCl [Dilaudid 1 mg/ml Syringe] MEDS 11/28/19 01:58 Discontinued 1 mg .ROUTE .STK-MED ONE Hydromorphone HCl [Dilaudid 1 mg/ml Syringe] MEDS 11/28/19 02:15 Discontinued 1 mg IVP ONCE STA Hydromorphone HCl [Dilaudid 1 mg/ml Syringe] MEDS 11/28/19 02:27 Active 1 mg IVP Q4HR PRN Ondansetron HCl/Pf [Zofran 4 mg/2 ml] MEDS 11/28/19 00:42 Discontinued 4 mg .ROUTE .STK-MED ONE Ondansetron HCl/Pf [Zofran 4 mg/2 ml] MEDS 11/28/19 01:00 Discontinued 4 mg IVP ONCE STA Ondansetron HCl/Pf [Zofran 4 mg/2 ml] MEDS 11/28/19 02:27 Active 4 mg IVP Q6H PRN Potassium Chloride Additive [Potassium Chloride 10 Meq MEDS 11/28/19 03:19 Discontinued Vial- Additive Only] 10 meq IV .STK-MED ONE Promethazine HCl [Phenergan 25 mg/ml Vial] MEDS 11/27/19 23:46 Discontinued 25 mg .ROUTE .STK-MED ONE Promethazine HCl [Phenergan 25 mg/ml Vial] 25 mg MEDS 11/27/19 23:40 Discontinued 0.9 % Sodium Chloride [Sodium Chloride] 50 ml IV ONCE Promethazine HCl [Phenergan 25 mg/ml Vial] 25 mg MEDS 11/28/19 02:27 Active 0.9 % Sodium Chloride [Sodium Chloride] 50 ml IV Q6H Quetiapine Fumarate [Seroquel] MEDS 11/28/19 21:00 Active 50 mg PO BEDTIME Sodium Chloride 0.9% [Sodium Chloride] 1,000 ml MEDS 11/27/19 23:40 Active IV 100 mls/hr Trazodone HCl [Desyrel] MEDS 11/28/19 09:00 Active 150 mg PO DAILY RESUSCITATION STATUS Routine OTHERS 11/28/19 02:57 Ordered ABDOMEN, SERIES FLAT & UPRIGHT Stat RADS 11/27/19 22:53 Completed Medications Generic Name Dose Route Start Last Admin Trade Name Freq PRN Reason Stop Dose Admin Clonazepam 0.5 mg 11/28/19 09:00 Klonopin PO BID GAVIN Famotidine 20 mg 11/28/19 09:00 Pepcid IVP Q12HR GAVIN Hydromorphone HCl 1 mg 11/28/19 02:27 11/28/19 06:01 Dilaudid 1 Mg/Ml Syringe IVP 1 mg Q4HR PRN Administration Abdominal Pain Sodium Chloride 1,000 mls @ 100 mls/hr 11/27/19 23:40 11/27/19 23:53 Sodium Chloride IV 11/28/19 09:39 100 mls/hr .Q10H STA Administration Promethazine HCl 25 mg/ Sodium 51 mls @ 75 mls/hr 11/28/19 02:27 Chloride IV Q6H PRN Nausea / Vomiting Potassium Chloride 10 meq/ 1,005 mls @ 125 mls/hr 11/28/19 03:30 11/28/19 03:25 Dextrose/Sodium Chloride IV 125 mls/hr .Q8H3M GAVIN Administration Ondansetron HCl 4 mg 11/28/19 02:27 11/28/19 06:01 Zofran 4 Mg/2 Ml IVP 4 mg Q6H PRN Administration Nausea / Vomiting Quetiapine Fumarate 50 mg 11/28/19 21:00 Seroquel PO BEDTIME GAVIN Trazodone HCl 150 mg 11/28/19 09:00 Desyrel PO DAILY GAVIN Discontinued Medications Generic Name Dose Route Start Last Admin Trade Name Freq PRN Reason Stop Dose Admin Butorphanol Tartrate 2 mg 11/27/19 23:40 11/27/19 23:53 Stadol IVP 11/27/19 23:41 2 mg ONCE STA Administration Hydromorphone HCl 0.5 mg 11/28/19 01:00 11/28/19 01:02 Dilaudid 1 Mg/Ml Syringe IVP 11/28/19 01:01 0.5 mg ONCE STA Administration Hydromorphone HCl 1 mg 11/28/19 02:15 11/28/19 02:16 Dilaudid 1 Mg/Ml Syringe IVP 11/28/19 02:16 1 mg ONCE STA Administration Promethazine HCl 25 mg/ Sodium 51 mls @ 75 mls/hr 11/27/19 23:40 11/27/19 23:51 Chloride IV 11/28/19 00:20 75 mls/hr ONCE STA Administration Ondansetron HCl 4 mg 11/28/19 01:00 11/28/19 01:02 Zofran 4 Mg/2 Ml IVP 11/28/19 01:01 4 mg ONCE STA Administration Assessment (1) Nausea and vomiting in adult patient: Status: Acute Code(s): R11.0 - Nausea SNOMED Code(s): 30598790 (2) Abdominal pain, acute, periumbilical: Status: Acute Code(s): R10.33 - Periumbilical pain SNOMED Code(s): 135930752 (3) Anxiety with depression: Status: Acute Code(s): F41.8 - Other specified anxiety disorders SNOMED Code(s): 12541454 (4) History of colonoscopy: Status: Chronic Code(s): Z98.89 - Other specified postprocedural states SNOMED Code(s): 066850074871 Plan Plan: 1. N/V in adult patient, irretractable--Patient admits symptoms likely associated w/ stress level lately with court custody trial today for her children. Continue Home meds as ordered per [facility]. Ondansatron 4mg IVP q 6hr prn N/V. Monitor labs, VS, I&O, and patient status. 2. Acute periumbicular Abdominal Pain-- It is noted on 11/27/2019 admission the WBC was slightly elevated at 11.26 remaining stable @ 04:23 11/28/2019 @ 11.6 w/ Neut% 79.3 and Neut # 9.3. Flat plate and upright of abdomen this visit 11/27/2019 reviewed with "No acute abnormalities in abdomen or pelvis; compared 11/27/2019 14:24 CT abd & pelvis to CT same area "No acute findings of GI or pelvic area; Chronic bilateral L5 pars defects." Patient notes decreasing nausea with no emesis in 4 hours. Plan is to monitor labs, VS, I&O, and assessment. D/C Dilaudid IV HOLLI when pain decreased to 3-4/10. Promethazine or Ondanestron as ordered for antiemetic. IVF replacement. Slowly increase diet as tolerated over nex 2-4 days; avoid milk & milk products, high sugar sodas & juices, fried, spicey foods, or any foods not tolerated well. Pain management as indicated. FR Precautions w/ narcotic usage. Report problems to [employer]PER[employer] HELPER STAT. 3. Anxiety w/ depression--Continue Home Meds and weekly f-u w/ [facility]. Monitor patient. [facility] Medical History (Updated 11/29/19 @ 22:58 by MARLON CORNELL) Depression with anxiety (Inactive) Drug overdose (Inactive) History of nausea and vomiting (Acute) Family History Mother No problems noted. Father No problems noted. MATERNAL GRANDMOTHER No problems noted. Social History Smoking and tobacco status: Current every day smoker Tobacco type: cigarettes Tobacco: How many years used: 15 Substance use type: does not use, former substance user Date of last use: 2016 per pt. report. and painkillers Counseling given: Yes Counseling provided: other Details: Seen at [facility] weekly per pt. report. Household members: friend(s) Marital status: D Lives independently: Yes History of recent travel: No Current gender identity: female Female Reproductive History Menstrual Hx Hysterectomy: Yes Hx Tubal Ligation: Yes
[2019-11-28] MEDS ORDERED: PEPCID IVP SCH (09:00)
[2019-11-28] MEDS ORDERED: KLONOPIN PO SCH (09:00)
[2019-11-28] MEDS ORDERED: DESYREL PO SCH ×2 (09:00→21:00)
[2019-11-28 14:02] VITALS: BP 102/63; TEMP 97.9
--- NOTE | 2019-11-28 16:32 | PCM.DC ---
Nausea & Vomiting in Adult patient w/ secondary Acute Periumbicular Abdominal Pain (1) Nausea and vomiting in adult patient: Status: Acute Code(s): R11.0 - Nausea SNOMED Code(s): 53465969 (2) Abdominal pain, acute, periumbilical: Status: Acute Code(s): R10.33 - Periumbilical pain SNOMED Code(s): 708925401 (3) Anxiety with depression: Status: Acute Code(s): F41.8 - Other specified anxiety disorders SNOMED Code(s): 05116659 Reason for Hospitalization: Nausea/Vomiting w/ intolerance for symptoms and resulting abdominal pain. Prognosis at Discharge: Poor- has LT history of frequenting various ER's w/ abdominal pain likely influenced by MH status and family issues w/ pain meds abuse. Work-up are generally benign. Condition at Discharge: Patient stable w/ abdominal pain resolved for >6 hrs. N/V resolved and able to keep down full liquids. Ambulating w/o assistance; gait steady. Abdomen is completely NT on palpation w/o masses; GILL/SO present. Medications at Discharge: Ambulatory Orders Medication Instructions Recorded trazodone 150 mg PO BEDTIME 06/30/19 quetiapine [Seroquel] 50 mg PO BEDTIME 09/08/19 clonazepam [Klonopin] 0.5 mg PO BID 11/27/19 tramadol 50 mg PO QID PRN #20 tab 11/27/19 famotidine [Pepcid] 40 mg PO BEDTIME #7 tab 11/28/19 ondansetron 4 mg PO Q8H PRN #20 tab 11/28/19 Lab/Diagnostics: Laboratory Last Values WBC 11.76 K/ul (4.6-10.2) H 11/28/19 04:20 RBC 4.40 10^6/ul (4.20-5.40) 11/28/19 04:20 Hgb 13.1 g/dl (12.0-16.0) 11/28/19 04:20 Hct 39.5 % (37.0-47.0) 11/28/19 04:20 MCV 89.8 fl (81.0-99.0) 11/28/19 04:20 MCH 29.8 pg (27.0-31.0) 11/28/19 04:20 MCHC 33.2 (31.8-35.4) 11/28/19 04:20 RDW Coeff of Aditi 13.7 % (11.6-14.8) 11/28/19 04:20 Plt Count 211 10^3/uL (140-440) 11/28/19 04:20 Immature Gran % (Auto) 0.6 % (0.0-5.0) 11/28/19 04:20 Neut % (Auto) 79.3 % (42.2-75.2) H 11/28/19 04:20 Lymph % (Auto) 14.0 (10.0-50.0) 11/28/19 04:20 Isabella % (Auto) 5.8 (0-10) 11/28/19 04:20 Eos % (Auto) 0.1 % (0.0-7.0) 11/28/19 04:20 Baso % (Auto) 0.2 % (0.0-3.0) 11/28/19 04:20 Immature Gran # (Auto) 0.1 (0.0-1.0) 11/28/19 04:20 Neut # (Auto) 9.3 K/ul (2.0-6.9) H 11/28/19 04:20 Lymph # (Auto) 1.7 K/uL (0.60-3.4) 11/28/19 04:20 Isabella # (Auto) 0.7 K/uL (0.4-2.0) 11/28/19 04:20 Eos # (Auto) 0.0 K/ul (0.0-0.7) 11/28/19 04:20 Baso # (Auto) 0.0 K/uL (0-0.2) 11/28/19 04:20 Sodium 139.6 mmol/L (134.5-145) 11/28/19 04:20 Potassium 3.97 mmol/L (3.5-5.1) 11/28/19 04:20 Chloride 108.0 mmol/L (98-107) H 11/28/19 04:20 Carbon Dioxide 25.5 mmol/L (22-30.0) 11/28/19 04:20 Anion Gap 10.07 11/28/19 04:20 BUN 6.4 mg/dL (7-17) L 11/28/19 04:20 Creatinine 0.57 mg/dL (0.60-1.30) L 11/28/19 04:20 Estimated GFR (MDRD) 119.00 mL/min 11/28/19 04:20 BUN/Creatinine Ratio 11.22 11/28/19 04:20 Glucose 118.6 mg/dL (74-106) H 11/28/19 04:20 Calcium 9.13 mg/dL (8.4-10.2) 11/28/19 04:20 Total Bilirubin 0.82 mg/dL (0.2-1.3) 11/28/19 04:20 AST 18.6 U/L (14-36) 11/28/19 04:20 ALT 12.9 U/L (0-35) 11/28/19 04:20 Alkaline Phosphatase 70.4 U/L (38-126) 11/28/19 04:20 Total Creatine Kinase 42.2 U/L (30-135) 11/27/19 23:28 Troponin I < 0.012 ng/ml (0.0000-0.120) 11/27/19 23:28 Total Protein 7.23 g/dL (6.3-8.2) 11/28/19 04:20 Albumin 4.43 g/dL (3.5-5.0) 11/28/19 04:20 Globulin 2.80 11/28/19 04:20 Albumin/Globulin Ratio 1.58 11/28/19 04:20 Amylase 74.6 U/L (30-110) 11/28/19 04:20 Lipase 28.8 U/L (23-300) 11/28/19 04:20 Urine Color Yellow (YELLOW) 11/27/19 22:50 Urine Clarity Slightly (CLEAR) 11/27/19 22:50 Urine pH 6.5 (5-9) 11/27/19 22:50 Ur Specific Horn[place] >=1.030 (1.005-1.030) 11/27/19 22:50 Urine Protein Negative (NEGATIVE) 11/27/19 22:50 Urine Glucose (UA) Negative (NEGATIVE) 11/27/19 22:50 Urine Ketones 1+ (NEGATIVE) 11/27/19 22:50 Urine Blood Trace-intact (NEGATIVE) 11/27/19 22:50 Urine Nitrite Negative (NEGATIVE) 11/27/19 22:50 Urine Bilirubin Negative (NEGATIVE) 11/27/19 22:50 Urine Urobilinogen 0.2 (0.2) 11/27/19 22:50 Ur Leukocyte Esterase Negative (NEGATIVE) 11/27/19 22:50 Urine Microscopic RBC 0-2 (0-2) 11/27/19 22:50 Ur Squamous Epith Cells 10-20 (0-5) 11/27/19 22:50 Amorphous Sediment Trace (NOT PRESENT) 11/27/19 22:50 Education Provided to Patient and Family: Handouts given on Gastroenteritis and discussed at length per nurse and [employer] on discharge. Advise rest and calm environment as able. Advance Full liquid diet gradually to soft, bland diet and avoid high sugar sodas, all sodas, alcohol, high sugar juices, milk & milk products, spicy foods, and any food/drink that gives GI upset/symptoms. Call Dr. Forbes, your PCP, for uncontrolled abdominal pain, nausea or vomiting, fever >101 not responding to tylenol, or any other symptoms listed in the handout. Come to ER [facility] if unable to reach Dr. Forbes. Take medications as prescribed for stomach and N/V. Continue [facility] weekly visits. Call panel coverer for f-u appointment HOLLI. Patient verbalized understanding and agrees w/ plan of care. Follow-ups: Follow-up w/ Dr. Rad Forbes in 2-3 days after hospitalization. Hospital Course: Patient was admitted late night 11/27/2019 from the ER by her PCP who was the attending ER MD for [facility]. She had been to [facility] ER early that AM and [facility] ER that afternoon w/ the same symptoms--Multiple episodes of vomiting bilious emesis that resulted in 10/10 khloe-umbicular abdominal cramping, severe pain. Medications are unknown from her early AM [facility] ER. She received pain medications afternoon at [facility] consisting of Nubain, Toradol, Famitodine, and Zofran w/ relief and wanting to leave as she had a court date the next day for custody issues. However, the symptoms recurred as severe as previous 2 times that day. She was then seen and received Stadol 2mg IVP followed by Dilaudid 1mg IVP and then admitted to floor w/ Dilaudid 0.5 mg every 4 hrs prn pain along with Phenergan X1 and then Zofran 4mg IVP every 6 hrs prn N/V. By early AM here N/V had stopped and Abdominal pain was rated 4/10. Patient was in a hurry to be discharged for her court appearance, but after a male friend appeared at her bedside she made a decision to be discharged later on disregarding the claimed court date. She had a flat plate & upright of Abdomen on admission that indicated on significant findings. Chart review for last year visits include 09/08/2019 Colonoscopy reported by pt. (results unknown), and 6 Abdominal/Pelvic CT all with no acute abdominal or pelvic findings. VS and labs were stable during her visit. Appetite was fair. By discharge she was tolerating full liquids w/o N/V. Patient was ambulating well and more alert denying abdominal pain for >4 hours. Note that patient refused needed Flu vaccine on discharge. Plan: Discharge Destination: Home 1. Nausea and Vomiting in Adult Patient w/ multiple Er visits. Dilaudid seemed to be the effective drug this visit, but concerning as patient has likely jacob for drug dependence and abuse considering her chaotic life issues and Mental Health issues. Advance diet as directed slowly w/ avoidance of irritants and foods as previously noted. Zofran 4mg DT Q 6 hrs prn N/V. 2. Acute Khloe-Umbicular Abdominal Pain after severe vomiting. Has new Rx for Tramadol 50mg PO Q 6hrs prn pain. Return to ER if severe pain w/o pain med. relief, fever >101, uncontrolled vomiting, coffee ground emesis, or bright blood in emesis, or any other concerning factors per handout. Call [employer] and make f-u appt for HOLLI. F-U w/ Dr. Rad Forbes in 3-5 days or sooner problems. 3. Depression w/ Anxiety--Cont' Home meds. Keep appt. at [facility] next week. Disposition Time: 55 minutes for education, consultation/discussion w/ Casemanagement, and Documentation.
[2019-11-28] MEDS ORDERED: SEROQUEL PO SCH (21:00)
== END 2019-11-28 16:07 | disposition home or self-care (01) ==
LOC: ED 22:37 → MEDSURG B 11-28 02:18 → INTOOBSV 11-28 02:18 → MEDSURG B 11-28 02:57
PROVIDERS: ADMIT Nurse Practitioner Family; ATTEND Nurse Practitioner Family
DX: R10.33 Periumbilical pain; F41.8 Other specified anxiety disorders; R10.9 Unspecified abdominal pain